=== PATIENT | female | born 1945 | race Caucasian/White ===

== ENCOUNTER → 2018-08-31 13:37 | Outpatient (CLI) | payer MEDICARE, SELFPAY ==
--- NOTE | 2018-08-31 13:41 | MM_ITS ---
MM Dig SC mamm unilat RT CAD Cassie technique utilized Ordering Physician: Rick Carney MD Patient Age: 73 years Female COMPARISON: We finally obtained studies from [facility] dated August 2017 & July 2016 INDICATION: Previous left mastectomy 32 years ago subsequent breast reconstruction. But Implant removed on left. Mammograms only performed on the right breast. TECHNIQUE: Cassie technique utilized on on right breast only. .. CC & MLO images were obtained of the breast tissue overlying implant, as well as a second set of images including the breast implant. Mammography is inherently limited due to the implants is a could obscure areas of breast R2 CAD reviewed. . FINDINGS: The Yi views of the right breast show no significant new findings. No dominant mass nor suspicious calcifications right breast. Breast tissue overlying the implant appears stable. Considering slight differences technique. I see no new interval areas of significant concern.... The right subglandular implant appears stable with slight undulating contour again noted but unchanged.. . IMPRESSION: Stable right mammogram. No areas of concern Stable right breast implant. BI-RADS Category: 2 Benign Finding(s) RECOMMENDED FOLLOW-UP: 1YR 1 YEAR FOLLOW-UP A letter has been sent to the patient regarding results of the study.)
== END ==
PROVIDERS: PCP Family Medicine; Visit Provider Family Medicine
DX: Z12.31 Encounter for screening mammogram for malignant neoplasm of breast (principal)
CPT/HCPCS: 77067

== ENCOUNTER → 2019-12-27 13:12 | Outpatient (CLI) | payer MEDICARE, SELFPAY ==
--- NOTE | 2019-12-27 13:18 | XR_ITS ---
PROCEDURE: XR CHEST 2V CLINICAL HISTORY: SOB, CONGESTION COMPARISON: No exams were available for comparison FINDINGS: The cardiomediastinal silhouette and pulmonary vascularity are within normal limits. There are partially calcified bilateral breast implants. No lobar consolidation or collapse. No acute bony abnormalities. IMPRESSION: No acute findings. Dictated by: Migel Franco MD 12/27/2019 17:40 Electronically signed by Migel Franco MD in [place] 12/27/2019 17:40
== END ==
PROVIDERS: PCP Family Medicine; Visit Provider Family Medicine
DX: R06.02 Shortness of breath (principal); J98.8 Other specified respiratory disorders
CPT/HCPCS: 71046

== ENCOUNTER → 2020-05-31 15:59 | Outpatient (CLI) | payer MEDICARE, SELFPAY ==
--- NOTE | 2020-05-31 | CA_ITS ---
APPROVED REPORT Bilateral Lower Extremity Venous Study for Security Engineer: CT Indications Lower Extremity Pain: Right Vein Imaging CFV (R): compressive, spontaneous, phasic, augmentation SFJ (R): compressive, spontaneous, phasic, augmentation FEM (R): compressive, spontaneous, phasic, augmentation POP (R): compressive, spontaneous, phasic, augmentation DFV (R): compressive, spontaneous, phasic, augmentation PTV (R): compressive, spontaneous, phasic, augmentation GSV (R): compressive, spontaneous, phasic, augmentation SSV (R): compressive, spontaneous, phasic, augmentation Peroneals (R):compressive, spontaneous, phasic, augmentation GAS (R): compressive, spontaneous, phasic, augmentation Findings RLE negative for DVT/SVT vessels fully compressible no reflux noted Conclusion RLE negative for DVT/SVT vessels fully compressible no reflux noted Electronically signed by : Migel Franco MD 06/03/2020 16:07:21
== END ==
PROVIDERS: PCP Family Medicine; Visit Provider Family Medicine
DX: S86.811A Strain of other muscle(s) and tendon(s) at lower leg level, right leg, initial encounter (principal); M79.662 Pain in left lower leg
CPT/HCPCS: 93971

== ENCOUNTER → 2020-06-28 12:29 | Outpatient (CLI) | payer MEDICARE, SELFPAY ==
--- NOTE | 2020-06-28 12:36 | XR_ITS ---
PROCEDURE: XR KNEE RT 3V CLINICAL INDICATION: RT KNEE PAIN COMPARISON: No exams were available for comparison FINDINGS: There is minor joint space narrowing medially. There is spurring of the tibial spines. There is narrowing of the patellofemoral compartment. There appears to be a small effusion in the suprapatellar bursa. There is mild arthrosclerotic calcification of the popliteal artery. There is no fracture or loose body. IMPRESSION: Mild degenerate changes along with effusion suprapatellar bursa Dictated by: Dr. Bret Lew MD 06/28/2020 13:03 Dr. Bret Lew MD in [place] 06/28/2020 13:03
== END ==
PROVIDERS: PCP Family Medicine; Visit Provider Family Medicine
DX: M25.561 Pain in right knee (principal)
CPT/HCPCS: 73562

== ENCOUNTER → 2021-02-14 12:37 | Outpatient (CLI) | payer MEDICARE, SELFPAY ==
--- NOTE | 2021-02-14 | CA_ITS ---
APPROVED REPORT EXAM: Comprehensive 2D, Doppler, and color-flow Echocardiogram Zone Supervisor Firearms: Keiko Kaiser CRT Ht: 5 ft 7 in Wt: 136lbs BSA: 1.72 BP: 110/70 mmHg Indications: Murmur, Hypertension/HDD, breast implants 2D Dimensions LVOT 1.82 cm (M/F) 1.5-2.5 LA Volume 63.80 mL LA Volume Index 37.10 mL/m2 (M/F) 16-34 M-Mode Dimensions RVDd 2.06 cm (0.9-2.6) LA Diam 3.32 cm (1.9-4.0) LVDd 4.67 cm (3.5-5.7) Ao Diam 3.00 cm (2.0-3.7) LVDs 3.22 cm (3.5-5.7) IVSd 1.22 cm (0.6-1.1) PWd 0.67 cm (0.6-1.1) EF (Teich) 58.70% FS 31.00% EDV (Teich) 100.80 mL TAPSE 1.61 (<1.7) ESV (Teich) 41.60 mL LV Diastology E Decel Time 227.00 (160-240 msec) E/A Ratio 0.93 MED E' 4.10 (< 7 cm/sec) MED A' 10.90 cm/s E'/MED E' Ratio 20.39 (>14) LAT E' 5.70 (<10 cm/sec) LAT A' 9.70 cm/s E/LAT E' Ratio 14.67 (>14) Aortic Valve LVOT Max 152.00 (70-110 cm/s) LVOT VTI 36.97 cm AoV Peak Panchito. 194.00 (50-130 cm/s) AO Peak GR. 15.00 mmHg AO Mean GR. 7.90 (<5 mmHg) AO VTI 46.79 (18-25 cm) HAN (VTI) 2.06 (2.5-4.5 cm2) Mitral Valve MV A Velocity 90.00 (40-130 cm/s) E/A Ratio 0.93 MV Decel. Time 227.00 (160-240 ms) Pulmonary Valve PV Peak Velocity 105.00 (50-150 cm/s) Tricuspid Valve TR P. Velocity 226.00 cm/s RAP Estimate 10.00 mmHg RVSP 30.40 mmHg Left Ventricle Left atrium is mildly enlarged, left ventricle is normal size, mild concentric left ventricular hypertrophy, visually estimated ejection fraction 55% with no regional wall motion abnormality, grade 1 diastolic dysfunction seen with tissue Doppler evidence of raise left atrial pressure. Right Ventricle Right atrium and right ventricle are normal size and contractility. Aortic Valve Aortic valve is thickened and calcified without Doppler evidence of aortic stenosis or aortic insufficiency. Mitral Valve Mitral valve grossly normal, there is trace mitral regurgitation. Tricuspid Valve Tricuspid grossly normal, there is trace tricuspid regurgitation, tricuspid regurgitation jet velocity is inadequate for calculation of the right ventricular systolic pressure. Pulmonic Valve Pulmonic valve is poorly visualized. Great Vessels Aortic root is normal size. Pericardium No significant pericardial effusion noted. Conclusion 1. Mildly enlarged left atrium, normal left ventricular size, mild concentric left ventricular hypertrophy, visually estimated ejection fraction 55% with no regional wall motion abnormality, grade 1 diastolic dysfunction seen with tissue Doppler evidence of raise left atrial pressure. 2. Trace mitral and tricuspid regurgitation. 3. Thickened and calcified aortic valve without Doppler evidence of aortic stenosis or aortic insufficiency. 4. No significant pericardial effusion noted, inferior vena cava is normal size with normal inspiratory collapse. Electronically signed by : Yony Carroll, 02/17/2021 09:31:40
--- NOTE | 2021-02-14 12:40 | MM_ITS ---
PROCEDURE INFORMATION: Exam: MG Screening 3D Mammography Exam date and time: 02/14/2021 12:40 PM Age: 75 years old Clinical indication: Screening exam; Personal history of breast cancer TECHNIQUE: Imaging protocol: Screening tomosynthesis and 2D mammography including computer-aided detection (CAD) when performed. COMPARISON: 1. MG SCUNIRT MM Dig SC mamm unilat RT CAD 08/31/2018 2:11 PM 2. MG MM MAMMO DIGITAL SCREENING AUG W CAD RT 09/01/2017 3:03 PM FINDINGS: MAMMOGRAPHY: Breast composition: The breast tissue is composed of scattered areas of fibroglandular density. Mass: None. Architectural distortion: None. Calcifications: Widespread capsular implant calcifications are noted. Asymmetric density: None. Skin thickening: None. Axillary adenopathy: None. Implants: Prepectoral silicone breast implants are present. The patient is status post left mastectomy IMPRESSION: No mammographic evidence of malignancy. Annual screening is recommended unless otherwise clinically indicated. ASSESSMENT: BI-RADS Category 2: Benign
== END ==
PROVIDERS: PCP Family Medicine; Visit Provider Nurse Practitioner
DX: Z12.31 Encounter for screening mammogram for malignant neoplasm of breast (principal); R01.1 Cardiac murmur, unspecified
CPT/HCPCS: 77063; 77067; 93306

== ENCOUNTER → 2021-02-21 09:49 | Outpatient (CLI) | payer MEDICARE, SELFPAY ==
--- NOTE | 2021-02-21 09:51 | XR_ITS ---
PROCEDURE: XR DEXA AXIAL SKELETON CLINICAL HISTORY: POSTMENOPAUSAL COMPARISON: No exams were available for comparison FINDINGS: The right hip BMD is 0.687 with a T-score of -2.1. The left hip BMD is 0.554 with a T-score of -2.7. The lumbar spine BMD is 1.0 with a T-score of -0.4. IMPRESSION: This patient is considered osteoporotic according to the World Health Organization criteria. Fracture risk is high. Treatment is advised. Based on these results a follow-up exam is recommended in 1 year. Dictated by: Migel Franco MD 02/22/2021 08:05 Migel Franco MD in [place] 02/22/2021 08:05
== END ==
PROVIDERS: PCP Family Medicine; Visit Provider Nurse Practitioner
DX: Z78.0 Asymptomatic menopausal state (principal)
CPT/HCPCS: 77080

== ENCOUNTER → 2022-01-08 07:23 | Outpatient (CLI) | payer MEDICARE, SELFPAY ==
--- NOTE | 2022-01-08 07:27 | CA_ITS ---
APPROVED REPORT EXAM: Comprehensive 2D, Doppler, and color-flow Echocardiogram Special Events Director: Jeniffer Weber, RCS, RVS Ht: 5 ft 7 in Wt: 140lbs BSA: 1.74 BP: 110/70 mmHg Indications: Murmur, Tachycardia, Hx-Breast CA with radiation TX, Family Hx HD, HTN 2D Dimensions IVSd 1.15 cm LA Volume 48.30 mL PWd 1.04 cm LA Volume Index 27.80 mL/m2 (M/F) 16-34 LVDd 3.97 cm Aortic Root 2.51 cm Left Atrium 3.41 cm LVOT 1.83 cm (M/F) 1.5-2.5 M-Mode Dimensions RVDd 2.04 cm (0.9-2.6) LA Diam 3.68 cm (1.9-4.0) LVDd 4.64 cm (3.5-5.7) Ao Diam 2.66 cm (2.0-3.7) LVDs 3.22 cm (3.5-5.7) IVSd 1.25 cm (0.6-1.1) PWd 1.28 cm (0.6-1.1) EF (Teich) 58.10% EPSs 0.81 cm FS 30.60% EDV (Teich) 99.30 mL TAPSE 2.56 (<1.7) ESV (Teich) 41.60 mL LV Diastology E Decel Time 127.00 (160-240 msec) E/A Ratio 0.88 MED E' 4.40 (< 7 cm/sec) MED A' 9.70 cm/s E'/MED E' Ratio 20.34 (>14) LAT E' 7.80 (<10 cm/sec) LAT A' 10.00 cm/s E/LAT E' Ratio 11.47 (>14) Aortic Valve LVOT Max 86.00 (70-110 cm/s) LVOT VTI 21.80 cm AoV Peak Panchito. 190.00 (50-130 cm/s) AO Peak GR. 14.50 mmHg AO Mean GR. 7.80 (<5 mmHg) AO VTI 45.98 (18-25 cm) HAN (VTI) 1.25 (2.5-4.5 cm2) Mitral Valve MV A Velocity 102.00 (40-130 cm/s) E/A Ratio 0.88 MV Decel. Time 127.00 (160-240 ms) MV Mean Gr. 2.30 (<2mmHg) MV PHT 60.00 ms Pulmonary Valve PV Peak Velocity 89.00 (50-150 cm/s) [place] End VMAX 194.00 cm/s Tricuspid Valve TR P. Velocity 207.00 cm/s RAP Estimate 10.00 mmHg RVSP 27.10 mmHg Left Ventricle Left atrium is mildly enlarged, left ventricle is normal size, mild concentric left ventricular hypertrophy, visually estimated ejection fraction 55% with no regional wall motion abnormality, grade 1 diastolic dysfunction seen with tissue Doppler evidence of raise left atrial pressure. Right Ventricle Right atrium and right ventricle are normal size and contractility. Aortic Valve Aortic valve is minimally thickened and fibrosed there is no aortic stenosis or aortic insufficiency. Mitral Valve Mitral valve is grossly normal, there is trace mitral regurgitation. Tricuspid Valve Tricuspid grossly normal, there is trace tricuspid regurgitation, tricuspid rotation jet velocity is inadequate for calculation of the right ventricular systolic pressure. Pulmonic Valve Pulmonic valve is poorly visualized Great Vessels Aortic root is normal size. Inferior vena cava normal size with normal inspiratory collapse. Pericardium No significant pericardial effusion noted. Conclusion 1. Mildly enlarged left atrium, normal left ventricular size, mild concentric left ventricular hypertrophy, visually estimated ejection fraction 55% with no regional wall motion abnormality, grade 1 diastolic dysfunction seen with tissue Doppler evidence of raise left atrial pressure. 2. Trace mitral and tricuspid regurgitation. 3. No significant pericardial effusion. 4. Inferior vena cava normal size with normal inspiratory collapse. Electronically signed by : Yony Carroll MD 01/09/2022 13:13:37
== END ==
PROVIDERS: PCP Family Medicine; Visit Provider Family Medicine
DX: R00.0 Tachycardia, unspecified (principal); R01.1 Cardiac murmur, unspecified
CPT/HCPCS: 93306

== ENCOUNTER → 2022-04-01 12:07 | Outpatient (CLI) | payer MEDICARE, SELFPAY ==
--- NOTE | 2022-04-01 12:13 | XR_ITS ---
FINAL REPORT CLINICAL HISTORY: PNEUMONIA OF BOTH LOWER LOBES UE TO INFECTIOS ORGANISM, COUGH COMPARISON: December 27, 2019 FINDINGS: Two views of the chest were obtained. The heart size and pulmonary vascularity are within normal limits. The mediastinum is normal. No acute pulmonary abnormality is identified. There is no pneumothorax. The bony thorax is intact. There is postoperative change of the anterior chest. IMPRESSION: Postoperative change with no active cardiopulmonary disease. Reviewed, Interpreted and Dictated by Trace Ferrer III, MD Transcribed by Inés Watson Authenticated and [facility]
== END ==
PROVIDERS: PCP Family Medicine; Visit Provider Nurse Practitioner
DX: J18.9 Pneumonia, unspecified organism (principal)
CPT/HCPCS: 71046

== ENCOUNTER → 2022-04-15 08:54 | Outpatient (CLI) | payer MEDICARE, SELFPAY ==
--- NOTE | 2022-04-15 09:10 | MM_ITS ---
PROCEDURE INFORMATION: Exam: MG Right Screening 3D Mammography Exam date and time: 04/15/2022 9:29 AM Age: 76 years old Clinical indication: Screening examination. personal history of breast cancer TECHNIQUE: Imaging protocol: Right Screening tomosynthesis and 2D mammography including computer-aided detection (CAD) when performed. COMPARISON: 1. MG MM DIG SCREENING MAMM BI W/CAD 02/14/2021 1:11 PM 2. MG SCUNIRT MM Dig SC mamm unilat RT CAD 08/31/2018 2:11 PM FINDINGS: MAMMOGRAPHY: Breast composition: There are scattered areas of fibroglandular density. Mass: None. Architectural distortion: None. Calcifications: Extensive capsular calcifications are present. Asymmetric density: None. Skin thickening: None. Axillary adenopathy: None. Implants: Prepectoral silicone breast implant is present. Other findings: The patient is status post left mastectomy IMPRESSION: No mammographic evidence of malignancy. Annual screening is recommended unless otherwise clinically indicated. ASSESSMENT: BI-RADS Category 2: Benign
--- NOTE | 2022-04-15 09:11 | XR_ITS ---
FINAL REPORT TECHNIQUE: Bone densitometry calculations of the lumbar spine and left hip were obtained. CLINICAL HISTORY: post menopausal FINDINGS: DEXA BONE DENSITY AXIAL SKELETON Using L1-4, the bone mineral density of the spine is 1.064 g/cm2, corresponding to T-score of 0.2. This is classified as normal bone mineralization. Using the left hip, the bone mineral density of the femoral neck is 0.630 g/cm2, corresponding to a T-score of -2.6. This is classified as osteoporosis. NOTE: T-score: Standard deviation compared with peak bone mass of young adult mean. *Following the recommendations of the International Society of Bone Densitometry, classification of hip BMD is based on the lower of two T-scores; total hip or femoral neck. IMPRESSION: Osteoporosis: Lowest T-score is at or below -2.5. This patient's T-score meets the World Health Organization criteria for osteoporosis. Reviewed, Interpreted and Dictated by Trace Ferrer III, MD Transcribed by Courtney Sam Authenticated and [facility]
== END ==
PROVIDERS: PCP Family Medicine; Visit Provider Nurse Practitioner
DX: Z12.31 Encounter for screening mammogram for malignant neoplasm of breast (principal); Z78.0 Asymptomatic menopausal state; M81.0 Age-related osteoporosis without current pathological fracture
CPT/HCPCS: 77063; 77067; 77080

== ENCOUNTER 2022-09-09 08:38 | Day surgery (SDC) | payer MEDICARE, SELFPAY ==
[2022-08-19 11:42] VITALS: BMI 21.2
[2022-09-09 08:57] VITALS: BP 147/58; PULSE 89; RESP 18; TEMP 36.2; O2SAT 99
[2022-09-09 09:21] VITALS: O2SAT 99
--- NOTE | 2022-09-09 09:23 | EXP.ANES.CKL ---
[facility] Medical History (Updated 09/09/22 @ 09:06 by Maria Fernanda Aden RN) Acquired hypothyroidism Breast cancer Fever blister History of pneumonia Hypertension Neoplasm of skin of upper arm Pulmonary interstitial fibrosis Surgical History (Updated 09/09/22 @ 09:06 by Maria Fernanda Aden RN) History of mastectomy History of surgery Family History Other Cancer Coronary artery disease Hypertension Social History (Updated 09/09/22 @ 09:04 by Maria Fernanda Aden RN) Smoking Status: Never smoker alcohol intake: never substance use type: denies use current occupational status: employed Travel in the last 8 weeks: None household members: spouse housing: house lives independently: Yes education level: high school caffeine: Yes special kristin needs: No agree to transfusion: No do you feel safe at home: Yes victim of physical abuse: No victim of emotional abuse: No victim of sexual abuse: No would you like helpful sources: No [facility] Anesthesia Checklist Patient Identification Patient Identification: Verbal (Name & ) Structural Data Admitted From: Home Planned Operative Procedure/s: egd,colonoscopy Consent for Planned Operative Procedure(s) Verified: Yes Airway Assessment C-Spine Mobility Assessed: Yes TMJ Mobility Assessed: Yes Dentition: Good Dentition Neurological Assessment Level of Consciousness: Awake, Alert and Appropriate Anesthesia Plan Anesthesia Risk discussed: Yes Anesthesia Plan: Verified ASA Class: II Anesthesia Type: MAC
--- NOTE | 2022-09-09 09:57 | P.PCN_ITS ---
Procedure: Date: 09/09/22 Patient Date of :: 1945 Procedure Performed:: Colonoscopy Indications:: The patient s a 77 year old who presents for surveillance colonoscopy for a history of colon polyps in the psat Performing Provider:: Cory Yuan MD Referring Provider:: Jose Harris MD Sedation:: See RN records Procedure:: After placing the patient in the left lateral decubitus position, the colonoscop y was gently inserted into the rectum and under direct visualization advanced to the cecum which was identified by transillumination in the right lower quadrant, identification of the ileocecal valve, appendiceal orifice, and cecal strap. Color, texture, mucosa, and anatomy of the colon were carefully examined with the scope. Findings:: Anal canal: normal Rectum: internal hemorrhoids Sigmoid colon: diverticulosis. Sessile polyp less than 10 mm in size. Removed with cold snare polypectomy Descending colon: normal without polyps or inflammatory changes Splenic flexure: normal Transverse colon: normal without polyps or inflammatory changes Hepatic flexure: Sessile polyp less than 10 mm in size. Removed with cold snare polypectomy Ascending colon: Ulcerated, neoplastic appearing mass lesion of the proximal ascending colon, occupies approximately 40-50% of circumference of lumen. Biopsies obtained. Endoscopic marker injected adjacent to this lesion Cecum: Sessile polyp less than 10 mm in size. Removed with cold snare polypectomy Terminal ileum: not visualized Impression: Neoplastic apparing mass lesion of the ascending colon Polyps of the cecum, hepatic flexure, and sigmoid colon Diverticulosis Melanosis coli Recommendations:: Await pathology results Refer for surgical and oncology consultations Repeat colonoscopy within 6-12 months after surgery Complications:: None Estimated blood obtained (mL): 0
[2022-09-09 10:00] VITALS: BP 96/44; PULSE 68; RESP 16; TEMP 36.4; O2SAT 95
--- NOTE | 2022-09-09 10:03 | HMH.SCOPE ---
Procedure: Date: 09/09/22 Patient Date of :: 1945 Procedure Performed:: EGD Indications:: Chronic intermittent dysphagia. The patient reports having had EGD with esophageal dilatation in the past Performing Provider:: Cory Yuan MD Referring Provider:: Jose Harris MD Sedation:: See RN notes Procedure:: The gastroscope was gently passed through the incisoral orifice into the oral cavity and under direct visualization the esophagus was intubated. The endoscope was passed down the esophagus, through the stomach, and into the duodenum. Color, texture, mucosa, and anatomy of the esophagus, stomach, and duodenum were carefully examined with the scope. Findings:: Oropharynx: normal Esophagus: normal. Biopsies obtained. Empiric dilatation performed with 54F bougie dilation EG Junction: intact at 40 cm Cardia: normal Fundus: normal Body: gastritis. biopsies obtained Antrum: gastritis.linear erythema.biopsies obtained Duodenal bulb: normal Duodenum (second and third portion): normal Recommendations:: Await pathology results Return for EGD with esophageal dilatation as needed Complications:: None Estimated blood obtained (mL): 0
[2022-09-09 10:10] VITALS: BP 123/55; PULSE 71; RESP 16; O2SAT 97
[2022-09-09 10:20] VITALS: BP 147/59; PULSE 75; RESP 17; O2SAT 100
[2022-09-09 10:30] VITALS: BP 149/86; PULSE 75; RESP 18; O2SAT 100
== END 2022-09-09 10:35 | disposition home or self-care (01) ==
PROVIDERS: PCP Family Medicine; Visit Provider Internal Medicine
PROC: 0DJ08ZZ Inspection of Upper Intestinal Tract, Via Natural or Artificial Opening Endoscopic (ICD-10-PCS; CPT 43235; principal; 2022-09-09 09:30)
DX: R13.10 Dysphagia, unspecified (principal); Z12.11 Encounter for screening for malignant neoplasm of colon; Z86.010 Personal history of colon polyps; D12.0 Benign neoplasm of cecum; D12.5 Benign neoplasm of sigmoid colon; Z79.899 Other long term (current) drug therapy
CPT/HCPCS: 43239; 43248; 45385

== ENCOUNTER → 2022-09-11 11:00 | Outpatient (CLI) | payer MEDICARE, SELFPAY ==
[2022-09-11 11:40] LABS: Basophils % 0.4 % (0.1-2.0); Eosinophils % 0.3 % (0.1-12.0); Hematocrit 26.5 % (37.0-47.0); Hemoglobin 7.9 g/dL (12.2-16.2); Lymphocytes # 0.6 K/mm3 (0.7-4.5); Lymphocytes % 5.4 % (10-50); Mean Corpuscular HGB Conc 29.7 g/dL (31.8-35.4); Mean Corpuscular Hemoglobin 21.7 pg (27.0-31.2); Mean Corpuscular Volume 73.3 fl (81-99); Mean Platelet Volume 9.8 fl (7.4-10.4); Monocytes # 0.4 K/mm3 (0.1-1.0); Neutrophils # 9.8 K/mm3 (1.8-7.8); Neutrophils % 89.9 % (37.0-80.0); Platelet Count 345 K/mm3 (142-424); Red Blood Count 3.62 M/mm3 (4.20-5.40); Red Cell Distribution Width 17.1 % (11.5-17.5); White Blood Count 10.9 K/mm3 (4.8-10.8)
[2022-09-11 12:07] LABS: MANUAL DIFFERENTIAL MANUAL DIFFERENTIAL (MANUAL DIFF)
[2022-09-11 12:20] LABS: Alanine Aminotransferase 43 U/L (12-78); Albumin Level 3.8 g/dl (3.5-5.0); Albumin/Globulin Ratio 1.7 (1.1-1.8); Alkaline Phosphatase 117 U/L (38-126); Anion Gap 14.7 mEq/L (5-15); Aspartate Amino Transferase 62 U/L (14-36); Bilirubin,Total 0.2 mg/dl (0.2-1.3); Blood Urea Nitrogen 18 mg/dl (7-17); Calcium 9.4 mg/dl (8.4-10.2); Carbon Dioxide 25 mmol/L (22.0-30.0); Chloride 103 mmol/L (98-107); Estimated Glomerular Filt Rate 69 ml/min (>60); GFR (African American) 84 ML/MIN (>60); Globulin 2.2 g/dL (1.3-3.2); Glucose 109 mg/dl (74-100); Potassium 3.7 mmoL/L (3.5-5.1); Sodium 139 mmol/L (136-145)
[2022-09-11 14:50] LABS: Anisocytosis 2+; Hypochromasia 1+; Lymphocytes % 12 % (10-50); Monocytes % 3 % (2-9); Neutrophils % 85 % (42-76); Platelet Estimate Normal; Total Cells Counted 100
[2022-09-12 08:14] LABS: CEA 2.9 ng/mL (0.0-4.7)
== END ==
PROVIDERS: PCP Family Medicine; Visit Provider Surgery
DX: K63.89 Other specified diseases of intestine (principal); R97.0 Elevated carcinoembryonic antigen [CEA]; J84.10 Pulmonary fibrosis, unspecified
CPT/HCPCS: 36415; 80053; 82378; 85007; 85025; 86850

== ENCOUNTER 2022-09-12 16:43 | Inpatient (IN) | payer MEDICARE, SELFPAY ==
[2022-09-12] VITALS (26 sets, daily range): BP systolic 84–132; BP diastolic 37–90; PULSE 91–119; RESP 18–20; TEMP 35.8–36.9; O2SAT 90–100; BMI 20.3; BMI 22.2
--- NOTE | 2022-09-12 16:42 | ECG_ITS ---
APPROVED REPORT Exam: Resting ECG HR:114 bpm ECG Measurements Heart Rate 114 AXES TX 146 P 71 QRSd 106 QRS 22 QT 323 T 30 QTc 391 Conclusion SINUS TACHYCARDIA WITH FREQUENT VENTRICULAR PREMATURE COMPLEXES ST DEVIATION AND MODERATE T-WAVE ABNORMALITY, CONSIDER LATERAL ISCHEMIA [-0.1+ mV T-WAVE IN I/aVL/V5/V6] ABNORMAL ECG UNCONFIRMED REPORT Electronically signed by : Pantera Blue MD 09/17/2022 20:20:25
--- NOTE | 2022-09-12 17:00 | XR_ITS ---
PROCEDURE INFORMATION: Exam: XR Chest Exam date and time: 09/12/2022 5:27 PM Age: 77 years old Clinical indication: Shortness of breath; Other: Chest pain TECHNIQUE: Imaging protocol: Radiologic exam of the chest. Views: 1 view. COMPARISON: CR XR CHEST 2V 04/01/2022 12:46 PM FINDINGS: Lungs: Unremarkable. No consolidation. Pleural spaces: Unremarkable. No pleural effusion. No pneumothorax. Heart/Mediastinum: Mild CHF new from comparison. Mild cardiomegaly. Bones/joints: Unremarkable. Soft tissues: Calcified breast implants bilaterally. IMPRESSION: 1. Calcified breast implants bilaterally. 2. Mild CHF new from comparison.
--- NOTE | 2022-09-12 17:09 | PC.NURSE ---
called lab and spoke with toñito about coming to collect labs on pt.
--- NOTE | 2022-09-12 17:11 | HMH.EDGENADL ---
Discharge Plan Disposition Patient Disposition: Admitted As Inpatient Chief Complaint: Chest Pain Clinical Impressions Clinical Impression: Respiratory failure, Heart failure, Non-ST elevation (NSTEMI) myocardial infarction, LBBB (left bundle branch block) Discharge ED Provider: Suresh Matthew General Adult HPI General Chief complaint: Chest Pain Stated complaint: chest pain Time Seen by Provider: 09/12/22 17:00 History of Present Illness HPI narrative: Patient is a 77-year-old female past medical history of hypertension who presents to the emergency department for evaluation of chest pain. Onset was acute, just prior to arrival. Patient was recently diagnosed with a upper respiratory illness. Pain is substernal, moderate to severe in intensity. In the field EMS was communicated to me that was concerning for STEMI however after discussing with cardiology it is a left bundle branch block that does not meet Sgarbossa criteria. Patient was given aspirin and sublingual nitroglycerin prior to arrival. Upon arrival patient has had large resolution of her pain and presents here for continued evaluation. No other additional complaints at this time. Related Data Home Medications Medication Instructions Recorded Confirmed alendronate 70 mg tablet 70 mg PO WEEKLY . 05/22/22 09/11/22 aspirin 81 mg tablet,delayed 81 mg PO DAILY HEART HEALTHY 05/22/22 09/11/22 release (Adult Low Dose Aspirin) amlodipine 2.5 mg tablet 2.5 mg PO DAILY BP 09/09/22 09/11/22 omeprazole 40 mg capsule,delayed 40 mg PO DAILY Reflux/Acid reflux 09/09/22 09/11/22 release thyroid (pork) 60 mg tablet 60 mg PO DAILY . 09/09/22 09/11/22 (Valentines Thyroid) Previous Rx's Medication Instructions Recorded albuterol sulfate 90 mcg/actuation 2 inh inhalation QID PRN shortness 08/27/22 aerosol inhaler of breath or wheezing #8.5 grams doxycycline hyclate 100 mg tablet 100 mg PO BID #20 tabs 09/11/22 fluticasone furoate 100 1 inh inhalation DAILY #30 ea 09/11/22 mcg-vilanterol 25 mcg/dose inhalation powder (Breo Ellipta) hydroxyzine HCl 25 mg tablet 25 mg PO BID PRN anxiety #20 tabs 09/11/22 prednisone 20 mg tablet 20 mg PO BID #10 tabs 09/11/22 Allergies Allergy/AdvReac Type Severity Reaction Status Date / Time Sulfa (Sulfonamide AdvReac Difficulty Verified 09/11/22 13:50 Antibiotics) Swallowing PFSH PFSH Medical History Acquired hypothyroidism Breast cancer Fever blister History of pneumonia Hypertension Neoplasm of skin of upper arm Pulmonary interstitial fibrosis Surgical History History of colonoscopy History of mastectomy History of surgery BREAST IMPLANTS Family History Other Cancer Coronary artery disease Hypertension Social History Smoking Status: Never smoker alcohol intake: never substance use type: denies use current occupational status: employed Travel in the last 8 weeks: None household members: spouse housing: house lives independently: Yes education level: high school caffeine: Yes special kristin needs: No agree to transfusion: No do you feel safe at home: Yes victim of physical abuse: No victim of emotional abuse: No victim of sexual abuse: No would you like helpful sources: No ROS Obtained: Yes Systems reviewed as appropriate & no additional complaints except as documented Physical Exam General General appearance: alert and in no apparent distress Head Head exam: atraumatic and normocephalic Eye Eye exam: Present PERRL and EOMI ENT ENT exam: Present mucous membranes moist Neck Neck exam: Present normal inspection Chest Chest inspection: Present normal inspection and symmetric chest wall rise Respiratory Respiratory exam: Present normal lung sounds
--- NOTE | 2022-09-12 17:14 | PC.NURSE ---
lab at bedside collecting blood
[2022-09-12 17:32] LABS: Basophils % 0.1 % (0.1-2.0); Hematocrit 27.5 % (37.0-47.0); Hemoglobin 8.4 g/dL (12.2-16.2); Lymphocytes # 0.5 K/mm3 (0.7-4.5); Mean Corpuscular HGB Conc 30.5 g/dL (31.8-35.4); Mean Corpuscular Volume 72.2 fl (81-99); Monocytes # 0.4 K/mm3 (0.1-1.0); Monocytes % 3.2 % (1.7-9.3); Neutrophils # 11.7 K/mm3 (1.8-7.8); Neutrophils % 92.6 % (37.0-80.0); Platelet Count 474 K/mm3 (142-424); Red Blood Count 3.81 M/mm3 (4.20-5.40); Red Cell Distribution Width 17.3 % (11.5-17.5); White Blood Count 12.7 K/mm3 (4.8-10.8)
[2022-09-12 17:37] LABS: MANUAL DIFFERENTIAL MANUAL DIFFERENTIAL (MANUAL DIFF)
[2022-09-12 17:40] LABS: Anion Gap 22.1 mEq/L (5-15); Blood Urea Nitrogen 25 mg/dl (7-17); Calcium 9.9 mg/dl (8.4-10.2); Carbon Dioxide 20 mmol/L (22.0-30.0); Chloride 103 mmol/L (98-107); Creatinine Clearance Estimated 42 mL/min (50-200); Estimated Glomerular Filt Rate 69 ml/min (>60); GFR (African American) 84 ML/MIN (>60); Glucose 168 mg/dl (74-100); Potassium 4.1 mmoL/L (3.5-5.1); Sodium 141 mmol/L (136-145)
[2022-09-12 17:44] LABS: D-Dimer 0.99 ug/mL (0.0-0.5)
--- NOTE | 2022-09-12 17:53 | CT_ITS ---
PROCEDURE INFORMATION: Exam: CTA Chest With Contrast Exam date and time: 09/12/2022 6:21 PM Age: 77 years old Clinical indication: Other: Chest pain; Additional info: Chest pain, positive dimer TECHNIQUE: Imaging protocol: Computed tomographic angiography of the chest with contrast. 3D rendering (Not supervised by radiologist): MIP and/or 3D reconstructed images were created by the technologist. Radiation optimization: All CT scans at this facility use at least one of these dose optimization techniques: automated exposure control; mA and/or kV adjustment per patient size (includes targeted exams where dose is matched to clinical indication); or iterative reconstruction. Contrast material: ISOVUE; Contrast volume: 70 ml; Contrast route: INTRAVENOUS (IV); COMPARISON: CR XR CHEST PORTABLE 09/12/2022 5:27 PM FINDINGS: Pulmonary arteries: No CT evidence of pulmonary embolus. Aorta: Unremarkable. No aortic aneurysm. No aortic dissection. Lungs: Compressive atelectasis left lower lobe. Pleural spaces: Unremarkable. No pneumothorax. No pleural effusion. Heart: Congestive heart failure. Mild cardiomegaly. No pericardial effusion. Lymph nodes: Unremarkable. No enlarged lymph nodes. Bones/joints: Unremarkable. No acute fracture. Soft tissues: Calcified bilateral breast implants. IMPRESSION: 1. Congestive heart failure. 2. Compressive atelectasis left lower lobe. 3. No CT evidence of pulmonary embolus. 4. Calcified bilateral breast implants.
--- NOTE | 2022-09-12 18:09 | PC.NURSE ---
pt to rad.
[2022-09-12 18:11] LABS: Troponin I 0.56 ng/ml (0.00-0.034)
--- NOTE | 2022-09-12 18:11 | PC.NURSE ---
Critical lab value called to [facility] Dr paged.
--- NOTE | 2022-09-12 18:12 | PC.NURSE ---
AHSAN speaking with Dr Winkler
--- NOTE | 2022-09-12 18:13 | PC.NURSE ---
audio director called and stated that pt's IV is possibly bad, requesting someone to come look at it
--- NOTE | 2022-09-12 18:33 | PC.NURSE ---
MD and nurse at bedside
[2022-09-12 18:35] LABS: Lymphocytes % 4 % (10-50); Monocytes % 1 % (2-9); Neutrophils % 90 % (42-76); Platelet Estimate Slight Increase; Poikilocytosis 3+; Total Cells Counted 100
[2022-09-12 18:37] LABS: Hypochromasia 2+; Microcytosis 2+; Target Cells 1+; Tear Drop Cells 1+
--- NOTE | 2022-09-12 18:45 | PC.NURSE ---
Entered room to assess pt. found pt to be unresponsive. Md to the bedside to assess. holly paged for phone consult per md request.
--- NOTE | 2022-09-12 18:48 | ECG_ITS ---
APPROVED REPORT Exam: Resting ECG HR:110 bpm ECG Measurements Heart Rate 110 AXES HI 146 P 58 QRSd 105 QRS 25 QT 316 T 198 QTc 381 Conclusion SINUS TACHYCARDIA POSSIBLE LEFT ATRIAL ENLARGEMENT [-0.1mV P-WAVE IN V1/V2] ST DEVIATION AND MODERATE T-WAVE ABNORMALITY, CONSIDER LATERAL ISCHEMIA [-0.1+ mV T-WAVE IN I/aVL/V5/V6] ABNORMAL ECG UNCONFIRMED REPORT Electronically signed by : Pantera Blue MD 09/14/2022 19:46:36
[2022-09-12 18:51] LABS: PTT Heparin (inpatient only) 19.1 Seconds (23.6-34.0)
[2022-09-12 19:01] LABS: NT Pro Brain Natriuretic Pep. 3720 pg/mL (0-450)
[2022-09-12 19:15] LABS: Coronavirus 19, PCR Not Detected (NotDetected); Influenza A, PCR Not Detected (NotDetected); Influenza B, PCR Not Detected (NotDetected)
[2022-09-12 19:25] LABS: VBG Base Excess -5.4 mmol/L (-2.4-2.3); VBG HCO3 20.3 mmol/L (23-30); VBG Oxygen Saturation 97.8 % (50-70); VBG PCO2 38.2 mmol/L (35-51); VBG PH 7.34 mmol/L (7.31-7.41); VBG PO2 113.8 mmol/L (28-40); VBG Total CO2 21.5 mmol/L (23-27)
--- NOTE | 2022-09-12 19:27 | ECG_ITS ---
APPROVED REPORT Exam: Resting ECG HR:137 bpm ECG Measurements Heart Rate 137 AXES DE 154 P 67 QRSd 113 QRS 66 QT 297 T 23 QTc 377 Conclusion SINUS TACHYCARDIA MODERATE INTRAVENTRICULAR CONDUCTION DELAY [105+ ms QRS DURATION, 80+ ms Q/S IN V1/V2, NO Q AND 60+ ms R IN I/aVL/V5/V6] NONSPECIFIC ST & T-WAVE ABNORMALITY ABNORMAL ECG UNCONFIRMED REPORT Electronically signed by : Pantera Blue MD 09/17/2022 20:20:08
--- NOTE | 2022-09-12 19:37 | PC.NURSE ---
verbal orders for intubation medications, ekg obtained and vbg collected at this time. verbal orders from md: 20 etomodate 100 succ post-sedation propofol ordered by
--- NOTE | 2022-09-12 19:42 | XR_ITS ---
PROCEDURE INFORMATION: Exam: XR Chest Exam date and time: 09/12/2022 7:55 PM Age: 77 years old Clinical indication: Device placement; Other: Et tube placement; Additional info: Et tube palcement TECHNIQUE: Imaging protocol: Radiologic exam of the chest. Views: 1 view. COMPARISON: CR XR CHEST PORTABLE 09/12/2022 5:27 PM FINDINGS: Tubes, catheters and devices: ET tube placement. Tip approximately 6 cm above the amol. Lungs: Bilateral perihilar and lower lobe interstitial infiltrates. Findings have slightly progressed in the right upper lobe. Pleural spaces: Unremarkable. No pleural effusion. No pneumothorax. Heart/Mediastinum: Unremarkable. No cardiomegaly. Bones/joints: Unremarkable. IMPRESSION: 1. ET tube placement. Tip approximately 6 cm above the amol. 2. Persistent bilateral perihilar and lower lobe infiltrates . Findings compatible with congestive failure.
--- NOTE | 2022-09-12 19:49 | IR_ITS ---
APPROVED REPORT Patient Location: [facility]: RANDA Morris RT (R) PROCEDURES Left heart catheterization Left ventriculogram Selective coronary angiogram Drug-eluting stent deployment to the ostial dominant right coronary artery followed by drug-eluting stent deployment to the mid and distal dominant right coronary Drug-eluting stent deployment to the ostial left main artery Drug-eluting stent deployment to the proximal and mid LAD Drug-eluting stent deployment to the first diagonal artery Intravascular ultrasound to the LAD Placement of intra-aortic balloon pump INDICATION Cardiogenic shock, Acute ST elevation myocardial infarction as evidenced by new onset left bundle branch block, Multivessel coronary artery disease Informed consent was obtained prior to the procedure. COMPLICATIONS None Estimated Blood Loss: Less than 10 mls TECHNIQUE One percent lidocaine was used to anesthetize the right groin. The right femoral artery was accessed via the Seldinger technique. A 6 [place] Ze[place] sheath was placed in the right femoral artery and a 6 [place] guide catheter was placed in the right coronary artery to perform right coronary selective angiography. A critical ostial stenosis was identified with severe dampening upon engagement. Therapeutic heparin was administered giving a therapeutic ACT and a Choice PT extra-support wire was placed down the vessel followed by a 3.5 x 12 mm resolute [place] stent being deployed at 24 christian in the ostial segment. An additional 3.5 x 8 mm resolute [place] stent was placed proximal to this for stent and then deployed at 24 christian to post dilate. An additional 3.5 x 38 mm resolute Nick stent was deployed in the mid to distal segment at 14 christian reducing the stenosis. An additional 3.5 x 18 mm resolute Nick stent was placed distal to the first stent and deployed at 12 chrsitian to further reduce distal stenoses. The balloon was brought back and deployed at 20 christian to mesh the stents and then further post dilate. The balloon was then brought back to the ostial segment and deployed at 26 christian to post dilate. Following this a 6 [place]ander JL 4 guide catheter was placed in the left coronary cusp angiography demonstrated a severe ostial stenosis. Choice PT extra-support wire was then placed into the LAD and a 4 mm x 12 mm resolute Nick stent was deployed at 20 christian reducing the severe to critical stenosis to 0%. This allowed predilatation of the first diagonal artery and the LAD. A 2.75 x 22 mm resolute [place] stent was then placed in the proximal LAD at 20 christian reducing the stenosis. 2 mm balloon was placed into the diagonal artery and predilated. An additional 2 mm x 18 mm resolute Nick stent was placed in the ostial proximal segment of the diagonal artery and deployed at 14 christian. A 2 mm balloon was then placed in the proximal to mid LAD and deployed. This allowed placement of a 2.5 x 15 mm resolute [place] stent to be overlapping the first LAD stent in the distal segment. This was deployed at 20 christian. The balloon was brought back and deployed at 24 christian to post dilate. A wire was placed back into the diagonal artery and a 1.5 mm balloon was deployed at 18 christian in the ostial segment as well as placed distally and deployed at 12 christian to further post dilate and reduce distal spasm. At this point intravascular ultrasound probe was advanced into the left main artery and LAD which demonstrated a critical stenosis was identified in the proximal LAD. A 3 mm x 18 mm resolute [place] stent was placed in the distal portion of the first left main stent which was placed and then deployed at 24 christian into the LAD. The balloon was advanced distal to the first diagonal artery and deployed at 18 christian to post dilate and the
[2022-09-12 19:55] LABS: Troponin I 0.77 ng/ml (0.00-0.034)
--- NOTE | 2022-09-12 19:55 | PC.NURSE ---
critical troponin called by lab. notified
--- NOTE | 2022-09-12 21:57 | PC.NURSE ---
PT ARRIVED VIA STRETCHER TO FLOOR AT THIS TIME
[2022-09-12 22:22] LABS: ABG Base Excess -10.8 mmol/L (-2.4-2.3); ABG HCO3 15.2 mmhg (22.0-26.0); ABG Oxygen Saturation 94 % (90-100); ABG PCO2 29.9 mmhg (35.0-45.0); ABG PH 7.32 mmol/L (7.35-7.45); ABG PO2 79.1 mmhg (80-100); ABG TCO2 16.1 mmhg (23-27)
[2022-09-12 22:23] LABS: Oxygen 75 %; Tidal Volume 420; Vent Rate 18
--- NOTE | 2022-09-12 22:49 | EXP.HP ---
History of Present Illness *Reason for visit:: Wheezing shortness of breath and chest pain *History of present illness: This 77-year-old white female presented to the emergency room at [facility] with complaints of chest pain and shortness of breath. I attempted to copy the ER narrative but the computer is not allowing me to do so. Initially in the emergency room the patient seemed to stabilize. She was found to have a new left bundle branch block. After she received some metoprolol she became tachycardic and seem to move into respiratory failure and increased shortness of breath. She became hypoxic. She was intubated. There was elevation of her troponin. The emergency room physician contacted cardiology. Arrangements were made for cardiac catheterization. The patient has had recent cardiac work-ups with an echo showing an ejection fraction of 55%. She has not shown evidence in the past of congestive heart failure. She is not a smoker. She recently lost her to heart disease. She has been undergoing evaluation for a neoplasm of the colon which appears to be colon cancer. She had endoscopy by Dr. Yuan. She is being seen by Dr. Fong. Cardiac catheterization was performed this evening by Dr. Mason Winkler. The patient had extensive coronary artery disease. She received 9 stents. Her ejection fraction appeared to be markedly reduced at 10%. She had very poor anterior wall function. An aortic balloon pump was also placed. At the time of this evaluation after the patient has been transferred to [facility]. She is on a ventilator. The aortic balloon pump is in place. She seems to be stabilizing rather rapidly. With the aortic balloon pump off her pressure is greater than 100/70. Dr. Winkler has decided to remove the balloon pump. She has diuresed over 2000 cc. [facility] Medical History Acquired hypothyroidism Breast cancer Fever blister History of pneumonia Hypertension Neoplasm of skin of upper arm Pulmonary interstitial fibrosis Surgical History History of colonoscopy History of mastectomy History of surgery BREAST IMPLANTS Family History Other Cancer Coronary artery disease Hypertension Social History (Updated 09/12/22 @ 23:01 by Sintia Harris MD) Smoking Status: Never smoker alcohol intake: never substance use type: denies use current occupational status: retired Travel in the last 8 weeks: None household members: none and other details: Spouse is recently from cardiac disease. housing: house lives independently: Yes education level: high school caffeine: Yes special kristin needs: No agree to transfusion: No do you feel safe at home: Yes victim of physical abuse: No victim of emotional abuse: No victim of sexual abuse: No would you like helpful sources: No Review of Systems Review of Systems Review of systems:: unable to obtain (Though she is usually very healthy. She exercises regularly. The recent most significant change is the evaluation of the colon neoplasm.) *Respiratory Respiratory: Reports as per HPI *Gastrointestinal Gastrointestinal: Reports as per HPI Integumentary/Breasts Skin/Breast: Reports other (History of implants and capsular scarring and contracture bilaterally) Meds Home Medications and Allergies Home Medications Medication Instructions Recorded Confirmed Type alendronate 70 mg tablet 70 mg PO WEEKLY . 05/22/22 09/11/22 History aspirin 81 mg tablet,delayed 81 mg PO DAILY HEART HEALTHY 05/22/22 09/11/22 History release (Adult Low Dose Aspirin) albuterol sulfate 90 mcg/actuation 2 inh inhalation QID PRN shortness 08/27/22 09/11/22 Rx aerosol inhaler of breath or wheezing #8.5 grams amlodipine 2.5 mg tablet 2.5 mg PO DAILY BP 09/09/22 09/11/22
--- NOTE | 2022-09-12 23:00 | PC.NURSE ---
unable to complete all admission paperwork due to pt intubated and sedated and no family present
--- NOTE | 2022-09-12 23:02 | SUR.OPER ---
Beside report given to Shabana HUI on 2nd floor, propofol gtt going at 60, per verbal order by dr barrera.
--- NOTE | 2022-09-12 23:10 | INFXCTL.NOTE ---
heparin drip stopped per verbal order from MD Winkler after removing sheath
--- NOTE | 2022-09-12 23:14 | PC.NURSE ---
pt admitted at 2215 to 216 from labeling machine operator on ventilator at 50% FIO2 with balloon pump in place, integrillin drip on at 2mcg/kg/min, heparin drip on at 800units/hr, and propofol on at 60mcg/kg/min; rosas catheter inserted by labeling machine operator RN's at bedside; Bel Winkler and Steven to bedside and after pt's cardiac output improved and pt diuresed large amounts of UOP MD Winkler pulled balloon from sheath, sheath left in place until 2300 and MD Winkler perclosed sheath site at bedside at 2305; dressing applied to right groin site at 2305, site CDI no s/s hematoma or drainage;
--- NOTE | 2022-09-12 23:19 | SUR.OPER ---
8f sheath per right groin removed per perclose by Dr barrera, hemostasis achieved, no s/s of bleeding or hematoma, sterile dressing applied.
[2022-09-12 23:31] LABS: Microscopic, Urine URINE MICROSCOPIC (MICROSCOPIC)
[2022-09-12 23:35] LABS: Appearance,Urine CLEAR (Clear); Bilirubin,Urine Negative (Negative); Blood, Urine 2+ (Negative); Color,Urine YELLOW (Yellow); Glucose,Urine (UA) Negative (Negative); Ketones,Urine Negative (Negative); Leukocyte Esterase,Urine Negative (Negative); Nitrate,Urine Negative (Negative); Protein,Urine Negative (Negative); Specific Gravity, Urine 1.015 (1.005-1.030); Urobilinogen,Urine 0.2 EU/dl (0.2)
[2022-09-12 23:43] LABS: WBC,Urine 20-50 #/hpf (0-3)
[2022-09-13] VITALS (71 sets, daily range): BP systolic 69–136; BP diastolic 35–124; PULSE 88–123; RESP 18–28; TEMP 36.6–37.4; O2SAT 2–110; BMI 21.9
--- NOTE | 2022-09-13 00:15 | PC.NURSE ---
decreased propofol drip to 40mcg/kg/min
--- NOTE | 2022-09-13 00:20 | PC.NURSE ---
decreased propofol drip to 20mcg/kg/min
--- NOTE | 2022-09-13 00:23 | PC.NURSE ---
called MD Winkler
--- NOTE | 2022-09-13 00:40 | PC.NURSE ---
Addendum entered by Francisca Barcenas RN 09/13/22 00:42: 150mL/hr MIVF for total of 1 bag Original Note: spoke with MD barrera about pt's hypotension, ordered 500mL NS bolus and then after that start 150mL/hr NS MIVF; bolus started, will send to night watch
--- NOTE | 2022-09-13 00:54 | PC.NURSE ---
pt's bp responding to bolus, pt waking up and attempting to pull OETT, increased propofol drip to 40mcg/min
--- NOTE | 2022-09-13 01:20 | PC.NURSE ---
ventilator settings: FIO2 70%, TV 430, PEEP 5, RR 18
--- NOTE | 2022-09-13 02:45 | PC.NURSE ---
RT Will decreased FIO2 to 60% and RN sat pt's HOB up to 30 degrees
--- NOTE | 2022-09-13 02:52 | PC.NURSE ---
spoke with MD Harris about pt's hypotension, instructed to give 200mL NS bolus, bolus started
--- NOTE | 2022-09-13 02:52 | PC.NURSE ---
spoke with MD Harris about pt's hypotension, instructed to give 200mL NS bolus, bolus started and will send form to night watch
--- NOTE | 2022-09-13 03:49 | PC.NURSE ---
spoke with MD Harris about pt's continued hypotension, instructed to give second 200mL NS bolus and then if doesn't bring bp up can start levophed drip
--- NOTE | 2022-09-13 05:54 | PC.NURSE ---
decreased propofol drip to 10mcg/kg/min (from 30mcg/kg/min) for sbt this am
--- NOTE | 2022-09-13 06:00 | PC.NURSE ---
held propofol for sbt, pt's hr slightly increased and rr increased but tolerating 40% pressure support, oxygen saturations are 96% on 40% pressure support
--- NOTE | 2022-09-13 07:00 | PC.NURSE ---
RT Shoshana extubated pt per telephone order from MD Winkler to 3LNC, oxygen saturations 92-94% on 3LNC, oral secretions suctioned, pt following commands, talking but hoarse, and answers orientation questions appropriately
--- NOTE | 2022-09-13 07:15 | PC.NURSE ---
integrillin drip complete per order and sbp/map WNL so held levo drip at this time
--- NOTE | 2022-09-13 07:18 | PC.NURSE ---
bp 77/38, restarted levo drip at 4mcg/min
--- NOTE | 2022-09-13 07:26 | PC.NURSE ---
bp 88/43, increased levo drip to 6mcg/min
[2022-09-13 08:07] LABS: Basophils % 0.3 % (0.1-2.0); Eosinophils % 0.1 % (0.1-12.0); Hematocrit 25.2 % (37.0-47.0); Lymphocytes # 0.7 K/mm3 (0.7-4.5); Lymphocytes % 4.2 % (10-50); Mean Corpuscular HGB Conc 29.3 g/dL (31.8-35.4); Mean Corpuscular Hemoglobin 21.4 pg (27.0-31.2); Mean Corpuscular Volume 73.1 fl (81-99); Mean Platelet Volume 8.7 fl (7.4-10.4); Monocytes # 0.3 K/mm3 (0.1-1.0); Neutrophils # 14.4 K/mm3 (1.8-7.8); Neutrophils % 93.4 % (37.0-80.0); Platelet Count 396 K/mm3 (142-424); Red Blood Count 3.45 M/mm3 (4.20-5.40); Red Cell Distribution Width 17.3 % (11.5-17.5); White Blood Count 15.4 K/mm3 (4.8-10.8)
[2022-09-13 08:11] LABS: MANUAL DIFFERENTIAL MANUAL DIFFERENTIAL (MANUAL DIFF)
[2022-09-13 08:19] LABS: Alanine Aminotransferase 118 U/L (12-78); Albumin Level 3.4 g/dl (3.5-5.0); Albumin/Globulin Ratio 1.4 (1.1-1.8); Alkaline Phosphatase 95 U/L (38-126); Anion Gap 22.5 mEq/L (5-15); Aspartate Amino Transferase 286 U/L (14-36); Bilirubin,Total 0.3 mg/dl (0.2-1.3); Blood Urea Nitrogen 32 mg/dl (7-17); Calcium 8.6 mg/dl (8.4-10.2); Carbon Dioxide 16 mmol/L (22.0-30.0); Chloride 107 mmol/L (98-107); Creatinine Clearance Estimated 35 mL/min (50-200); Estimated Glomerular Filt Rate 40 ml/min (>60); GFR (African American) 48 ML/MIN (>60); Globulin 2.4 g/dL (1.3-3.2); Glucose 135 mg/dl (74-100); Potassium 3.5 mmoL/L (3.5-5.1); Sodium 142 mmol/L (136-145); Total Protein,Serum 5.8 g/dl (6.3-8.2)
--- NOTE | 2022-09-13 08:24 | PC.NURSE ---
Dr. Winkler paged. clarified order for integrilin drip. Order to give brillinta po and if patient able to tolerate then keep integrilin drip off. Order to give normal saline at 150 ml/hr for [address] Winkler of 20 beat run of v-tach but patient now in sinus tachycardia with no signs or symptoms. Dr. Winkler also notified that patient was placed back on levo drip due to blood pressures.
[2022-09-13 08:49] LABS: Hemoglobin 7.4 g/dL (12.2-16.2)
--- NOTE | 2022-09-13 09:05 | XR_ITS ---
PROCEDURE INFORMATION: Exam: XR Chest Exam date and time: 09/13/2022 9:42 AM Age: 77 years old Clinical indication: Shortness of breath; Additional info: Follow up exam stemi TECHNIQUE: Imaging protocol: Radiologic exam of the chest. Views: 1 view. COMPARISON: CR XR CHEST PORTABLE 09/12/2022 7:55 PM FINDINGS: Lungs: Emphysematous change, interstitial disease, and improved airspace disease. Pleural spaces: Questionable small pleural effusions. Heart/Mediastinum: No cardiomegaly. Prominence of the pulmonary vasculature. Bones/joints: Osteopenia and degenerative change. Soft tissues: Calcified bilateral breast implants. IMPRESSION: Emphysematous change, interstitial disease, and improved airspace disease.
--- NOTE | 2022-09-13 09:14 | HMH.PHAINT1 ---
Pharmacy Intervention Comments: Medication reconciliation completed via external fill history and patient interview. -Elizabeth Menjivar, PharmD Candidate 2022
--- NOTE | 2022-09-13 09:36 | PC.NURSE ---
Levophed drip at 8mcg while NS started at 0851.
--- NOTE | 2022-09-13 10:09 | PC.NURSE ---
NG tube taken out per Dr. Harris verbal order at 6367
--- NOTE | 2022-09-13 12:03 | PC.NURSE ---
Addendum entered by Delores Peterson RN 09/13/22 12:06: levophed drip Original Note: Drip increased to 10mcg due to blood pressure 84/38 map 53 heart rate 97
[2022-09-13 14:01] LABS: Anisocytosis 1+; Eosinophils % 1 % (0-3); Hypochromasia 2+; Lymphocytes % 6 % (10-50); Neutrophils % 93 % (42-76); Platelet Estimate Normal; Total Cells Counted 100
[2022-09-13 14:02] LABS: Microcytosis 1+
--- NOTE | 2022-09-13 14:17 | EXP.ACUTE.PN ---
Subjective *Date: 09/13/22 *Time: 14:17 Interval history: She was extubated around 7:00 this morning. She has still required some Levophed. She is awake and alert and not in distress. She does have a cough that is slightly productive. She describes the shortness of breath and chest pain that brought her into the hospital. We discussed the pulmonary respiratory issues that preceded her hospitalization. Her anemia has worsened with a hemoglobin of 7.4. Her white count is still elevated at 15.4. I discussed with patient and family the note that I had received from Dr. Yuan indicating that she has a colon carcinoma. Patient denies awareness of any blood loss through the stool. We discussed timing of surgery vis-?-vis her current cardiac and respiratory status. Medical Exam Vital signs and Labs for Last 24 Hours: Vital Signs Temp Pulse Pulse Resp BP BP Pulse Ox 09/13/22 13:30 111 H 22 105/46 L 96 09/13/22 12:00 98.0 F 09/13/22 13:00 105 H 21 104/42 L 95 09/13/22 12:30 116 H 21 112/46 L 97 09/13/22 11:30 97 H 20 87/38 L 99 09/13/22 10:30 96 H 20 92/45 L 100 09/13/22 10:00 98 H 21 92/40 L 09/13/22 09:30 99 H 20 93/39 L 100 09/13/22 12:00 97 H 20 84/38 L 98 09/13/22 11:00 99 H 20 94/38 L 97 09/13/22 08:55 96 H 24 85/40 L 100 09/13/22 08:30 106 H 23 103/43 L 99 09/13/22 10:00 96 H 21 92/40 L 99 09/13/22 09:30 99 H 24 93/39 L 100 09/13/22 09:15 99 H 24 98/38 L 100 09/13/22 09:00 102 H 23 105/38 L 102 H 09/13/22 08:15 101 H 23 96/41 L 98 09/13/22 09:00 98.6 F 102 H 24 105/38 L 100 09/13/22 08:00 98.4 F 09/13/22 07:50 97 H 24 87/37 L 97 09/13/22 07:45 103 H 24 88/39 L 09/13/22 07:40 103 H 22 91/40 L 99 09/13/22 07:35 103 H 23 92/40 L 97 09/13/22 07:25 104 H 25 H 88/43 L 97 09/13/22 07:20 102 H 24 80/61 L 09/13/22 08:00 101 H 25 H 78/43 L 2 L 09/13/22 07:30 103 H 24 100/37 L 09/13/22 07:15 104 H 23 77/36 L 94 L 09/13/22 07:00 106 H 26 H 98/41 L 96 09/13/22 06:59 98 09/13/22 06:17 100 09/13/22 04:00 94 H 09/13/22 00:00 92 H 09/12/22 22:28 98 H 09/13/22 04:30 94 H 20 97/43 L 100 09/13/22 06:30 111 H 24 108/36 L 97 09/13/22 06:15 112 H 25 H 112/39 L 97 09/13/22 06:00 99.4 F 88 22 103/46 L 96 09/13/22 05:00 91 H 19 97/44 L 100 09/13/22 03:30 92 H 24 80/41 L 100 09/13/22 02:30 91 H 22 81/38 L 100 09/13/22 01:30 92 H 20 86/40 L 100 09/13/22 04:00 98.4 F 94 H 24 81/36 L 100 09/13/22 01:00 101 H 20 92/37 L 100 09/13/22 04:00 20 09/13/22 04:00 100 09/13/22 03:00 94 H 22 78/42 L 100 09/13/22 02:00 97.8 F 96 H 21 80/38 L 100 09/13/22 00:45 97 H 24 136/124 H 100 09/13/22 00:25 92 H 18 80/40 L 100 09/13/22 00:21 92 H 18 69/38 L 100 09/13/22 00:15 93 H 18 74/43 L 100 09/13/22 00:00 95 H 18 87/42 L 100 09/12/22 23:35 95 H 18 101/42 L 100 09/12/22 23:30 96 H 18 96/49 L 100 09/12/22 23:25 98 H 18 94/46 L 100 09/12/22 23:20 91 H 18 93/46 L 100 09/12/22 23:10 98 H 18 105/46 L 100 09/12/22 23:06 96 H 18 111/47 L 100 09/12/22 23:00 96.5 F L 94 H 18 105/45 L 100 09/12/22 22:57 94 H 18 100/46 L 97 09/12/22 19:30 18 09/12/22 22:45 95 H 18 102/48 L 94 L 09/12/22 22:42 94 H 18 100/44 L 91 L 09/12/22 22:35 96 H 18 100/45 L 91 L 09/12/22 22:30 97 H 20 120/37 L 90 L 09/12/22 22:20 96 H 20 112/48 L 90 L 09/13/22 02:00 19 09/13/22 00:33 97 H 18 73/38 L 100 09/12/22 23:45 97 H 18 93/45 L 100 09/12/22 23:15 96.8 F L 97 H 18 100/49 L 100 09/12/22 23:03 92 H 18 84/42 L 100 09/12/22 22:54 94 H 18
--- NOTE | 2022-09-13 14:31 | PC.NURSE ---
levophed drip titrated down to 8mcg due to bp 126/49 hr 123 at 1415
--- NOTE | 2022-09-13 15:52 | PC.NURSE ---
Levophed drip titrated to 6 mcg as bp 124/49 hr 115 at 1530
--- NOTE | 2022-09-13 17:47 | PC.NURSE ---
called lab to find out if blood was ready for transfusion. Was told by Ritesh in lab that a crossmatch still needed to be ordered and blood was not ready. Attempted to put in crossmatch order and called Ritesh in lab back as darling was not showing any orders to choose from. Ritesh from lab stated he would put crossmatch order in.
--- NOTE | 2022-09-13 19:40 | PC.NURSE ---
first unit ordered prbc started
--- NOTE | 2022-09-13 20:00 | PC.NURSE ---
bp 112/48 (69), held levo drip (was on 2mcg/min)
--- NOTE | 2022-09-13 22:30 | PC.NURSE ---
second ordered unit prbc started
[2022-09-14] VITALS (34 sets, daily range): BP systolic 77–151; BP diastolic 39–90; PULSE 80–134; RESP 16–26; TEMP 36.5–36.9; O2SAT 89–100; BMI 22.3
[2022-09-14 02:20] LABS: Hematocrit 30.3 % (37.0-47.0)
[2022-09-14 02:21] LABS: Hemoglobin 9.6 g/dL (12.2-16.2)
[2022-09-14 06:35] LABS: Basophils % 0.2 % (0.1-2.0); Eosinophils % 0.1 % (0.1-12.0); Hematocrit 28.5 % (37.0-47.0); Hemoglobin 8.8 g/dL (12.2-16.2); Lymphocytes # 0.7 K/mm3 (0.7-4.5); Lymphocytes % 5.2 % (10-50); Mean Corpuscular HGB Conc 30.9 g/dL (31.8-35.4); Mean Corpuscular Hemoglobin 24.1 pg (27.0-31.2); Mean Corpuscular Volume 77.9 fl (81-99); Mean Platelet Volume 9.4 fl (7.4-10.4); Monocytes # 0.7 K/mm3 (0.1-1.0); Monocytes % 4.9 % (1.7-9.3); Neutrophils # 12.5 K/mm3 (1.8-7.8); Neutrophils % 89.5 % (37.0-80.0); Platelet Count 192 K/mm3 (142-424); Red Blood Count 3.65 M/mm3 (4.20-5.40); Red Cell Distribution Width 18.7 % (11.5-17.5)
[2022-09-14 06:38] LABS: MANUAL DIFFERENTIAL MANUAL DIFFERENTIAL (MANUAL DIFF)
[2022-09-14 06:43] LABS: Alanine Aminotransferase 138 U/L (12-78); Albumin Level 3.4 g/dl (3.5-5.0); Albumin/Globulin Ratio 1.4 (1.1-1.8); Alkaline Phosphatase 92 U/L (38-126); Anion Gap 15.2 mEq/L (5-15); Aspartate Amino Transferase 290 U/L (14-36); Bilirubin,Total 0.7 mg/dl (0.2-1.3); Blood Urea Nitrogen 32 mg/dl (7-17); Calcium 8.6 mg/dl (8.4-10.2); Carbon Dioxide 19 mmol/L (22.0-30.0); Chloride 111 mmol/L (98-107); Creatinine Clearance Estimated 46 mL/min (50-200); Estimated Glomerular Filt Rate 53 ml/min (>60); GFR (African American) 65 ML/MIN (>60); Globulin 2.4 g/dL (1.3-3.2); Glucose 108 mg/dl (74-100); Potassium 3.2 mmoL/L (3.5-5.1); Sodium 142 mmol/L (136-145); Total Protein,Serum 5.8 g/dl (6.3-8.2)
[2022-09-14 07:44] LABS: Lymphocytes % 8 % (10-50); Monocytes % 7 % (2-9); Neutrophils % 85 % (42-76); Nucleated Red Blood Cells 1; Total Cells Counted 100
[2022-09-14 07:45] LABS: Anisocytosis 1+; Hypochromasia 1+; Microcytosis 1+; Platelet Estimate Normal
--- NOTE | 2022-09-14 07:47 | EXP.PN ---
Subjective *Date: 09/14/22 *Time: 07:47 Interval history: She slept at intervals during the night. Patient denies chest pain and shortness of breath. She continues mostly with a nonproductive cough. She is in the process of having an echocardiogram. She states she was unable to eat yesterday due to the sore throat but was able to take a few liquids. She continues to have Burger catheter. Bowels have not moved. She denies any abdominal discomfort. Blood chemistries show low potassium at 3.2. BUN is 32 and creatinine is 1. White blood cell count is 14,000 with a hemoglobin of 8.8 and hematocrit of 28.5. Platelet count is normal. Chest x-ray from yesterday Shows emphysematous changes, interstitial disease and improved airspace disease. Urine culture is negative thus far. Blood pressure is stabilized off Levophed. O2 sats are 98% on O2 at 2 L/min. Weight is 142 pounds. Patient did receive 2 units of packed red blood cells yesterday. Urinary output has been 1250 mL. Exam Data for Last 24 hours Vital signs and Labs for Last 24 Hours: Temp Pulse Resp BP Pulse Ox FiO2 97.7 F 100 H 20 118/55 L 98 28 09/14/22 04:00 09/14/22 06:00 09/14/22 06:00 09/14/22 06:00 09/14/22 06:00 09/13/22 20:31 Laboratory Results - last 24 hr 09/13/22 00:30: Blood Type B Positive, Antibody Screen Negative, Crossmatch ([facility]) See Detail 09/13/22 07:26: WBC 15.4 H, RBC 3.45 L, Hgb 7.4 L D, Hct 25.2 L, MCV 73.1 L, MCH 21.4 L, MCHC 29.3 L, RDW 17.3, Plt Count 396, MPV 8.7, Neut % (Auto) 93.4 H, Lymph % (Auto) 4.2 L, [place] % (Auto) 2.0, Eos % (Auto) 0.1, Baso % (Auto) 0.3, Neut # (Auto) 14.4 H, Lymph # (Auto) 0.7, [place] # (Auto) 0.3, Eos # (Auto) 0.0, Baso # (Auto) 0.0, Total Counted 100, Neutrophils % (Manual) 93 H, Lymphocytes % (Manual) 6 L, Eosinophils % (Manual) 1, Platelet Estimate Normal, RBC Morphology Not Reportable, Hypochromasia 2+, Anisocytosis 1+, Microcytosis 1+ 09/13/22 07:26: Sodium 142, Potassium 3.5, Chloride 107, Carbon Dioxide 16 L, Anion Gap 22.5 H, BUN 32 H D, Creatinine 1.30 H D, Estimated Creat Clear 35, Estimated GFR 40 L, Est GFR ( Amer) 48 L D, Glucose 135 H, Calcium 8.6, Total Bilirubin 0.3, AST 286 H D, ALT 118 H D, Alkaline Phosphatase 95, Total Protein 5.8 L, Albumin 3.4 L, Globulin 2.4, Albumin/Globulin Ratio 1.4 09/14/22 02:10: Hgb 9.6 L D, Hct 30.3 L 09/14/22 05:55: WBC 14.0 H, RBC 3.65 L, Hgb 8.8 L, Hct 28.5 L, MCV 77.9 L, MCH 24.1 L, MCHC 30.9 L, RDW 18.7 H, Plt Count 192 D, MPV 9.4, Neut % (Auto) 89.5 H, Lymph % (Auto) 5.2 L, [place] % (Auto) 4.9, Eos % (Auto) 0.1, Baso % (Auto) 0.2, Neut # (Auto) 12.5 H, Lymph # (Auto) 0.7, [place] # (Auto) 0.7, Eos # (Auto) 0.0, Baso # (Auto) 0.0, Total Counted 100, Neutrophils % (Manual) 85 H, Lymphocytes % (Manual) 8 L, Monocytes % (Manual) 7, Nucleated RBCs 1, Platelet Estimate Normal, Hypochromasia 1+, Anisocytosis 1+, Microcytosis 1+ 09/14/22 05:55: Sodium 142, Potassium 3.2 L, Chloride 111 H, Carbon Dioxide 19 L, Anion Gap 15.2 H, BUN 32 H, Creatinine 1.00 D, Estimated Creat Clear 46, Estimated GFR 53 L, Est GFR ( Amer) 65 D, Glucose 108 H, Calcium 8.6, Total Bilirubin 0.7, AST 290 H, ALT 138 H, Alkaline Phosphatase 92, Total Protein 5.8 L, Albumin 3.4 L, Globulin 2.4, Albumin/Globulin Ratio 1.4 I & O for Last 24 hours: Intake & Output 09/11/22 09/12/22 09/13/22 09/14/22 11:59 11:59 11:59 11:59 Intake Total 411 / 411 1742.01 / 1742.01 Output Total 2640 / 2640 850 / 850 Balance -2229 / -2229 892.01 / 892.01 Weight 140 lb 3 oz 142 lb 2.994 oz Microbiology Reports for the Last 24 Hours: Microbiology 09/12/22 22:50 Urine,Catheterized Urine Culture - Preliminary NO GROWTH AFTER 24 HOURS Constitutional Constitutional: no acute distress Comments: Appears comfortable. Having echocardiogram completed. *Routine Respiratory Exam Respiratory: Present crackles (Fine bibasilar crackles) *Routine Cardiovascular Exam Cardio
--- NOTE | 2022-09-14 08:51 | PC.NURSE ---
called and spoke with Nyla Guzman in regards to order of transfuse 1 unit of blood on hold. pt does not have blood on hold at this time. 0849 new orders from nyla guzman, order 2 units of blood, 1 to transfuse and 1 to hold.
--- NOTE | 2022-09-14 11:36 | DIET.NUTRFU ---
RD clarified diet with nursing, patient tolerated clear liquids for breakfast and it is ready for soft foods for lunch. Kitchen made aware
--- NOTE | 2022-09-14 11:59 | EXP.CARD.CON ---
History of Present Illness History of Present Illness Consult date: 09/14/22 Requesting physician: Sintia Harris Consult reason: chest pain Chief complaint: chest pain Additional Medical History:: Past Medical History: colon neoplasm- colon carcinoma Htn Cath report 09/12/2022 ANGIOGRAPHIC RESULTS The left main artery Has an ostial 80% stenosis The left anterior descending artery Has severe calcified diffuse 80% stenoses with mid vessel 90% stenosis with a distal segment subtotally occluded.? The first diagonal artery is small to medium in size and is subtotally occluded proximally The circumflex artery Is nondominant and has a proximal tubular 40 to 50% stenosis with mild atheromatous plaque large obtuse marginal artery The right coronary artery Is a large dominant vessel and has an ostial 80 to 90% stenosis with a mid vessel to distal 80 and 90% stenosis The STRONG ventriculogram reveals Severe left ventricular dilatation severe global hypokinesis with estimated ejection fraction 15% The left ventricular end-diastolic pressure 40 mmHg IMPRESSION Cardiogenic shock as described above with successful percutaneous revascularization of the left main artery LAD first diagonal artery and ostial mid and distal dominant right coronary Successful placement of intra-aortic balloon pump Severe left ventricular dilatation with severely reduced ejection fraction Elevated LVEDP PLAN 1. Integrilin drip 2. Patient only received 90 mg of Brilinta and requires an additional dose.? Continue 90 mg twice daily 3. Aspirin 81 mg daily 4. Supportive care using intra-aortic balloon pump 5. Supportive care using ventilator for cardiogenic shock and acute respiratory failure 6. LDL less than 55 to be achieved with high intensity statin 7. Standard therapy for systolic congestive heart failure which should include Entresto and beta-blockers once hemodynamically stable History of present illness: 77 year old white female with the above past medical hx presented to ED on 09/12/2022 via ems with complaint of new onset midsternal chest pressure, 8/10 radiating to back with soa which initially improved greatly with nitro and aspirin. Patient reports symptoms had started just prior to calling EMS. Upon presentation to ER initial EKG was sr rate of 114 with a LBBB. After presenting to ER patient had significant decompensation with tachycardia and worsening hypoxia and respiratory effort requiring intubation. Patient was then transferred to the earthmoving labourer where she received a total of 9 stents and was placed on an intra-aortic balloon pump for cardiogenic shock. EF was noted to be about 10%. Patient improved quickly and the balloon pump was removed less than an hour after placement. Patient was extubated yesterday and remains off of all drips. Patient reports today she feels good other than feeling fatigued. patient recently was dx with a colon mass which turned out to be colon carcinoma which she sees Dr. Batista for. Hemoglobin did drop as low as 7.4 and patient has received 2 units packed red blood cell with the third pending. Hemoglobin today 8.8. Repeat echo preliminary report shows an estimated ejection fraction of 35 to 45%. [facility] Medical History (Updated 09/14/22 @ 13:11 by Zari Mcmahon APRN) Acquired hypothyroidism Blood loss anemia Breast cancer Bronchitis Colon cancer Emphysema lung Fever blister History of pneumonia Hypertension Neoplasm of skin of upper arm Pulmonary interstitial fibrosis Surgical History History of colonoscopy History of mastectomy History of surgery Family History Other Cancer Coronary artery disease Hypertension Social History (Updated 09/13/22 @ 06:30 by Francisca Barcenas RN) Smoking Status: Never smoker alcohol intake: never substance use type: denies use current occupational status:
[2022-09-14 13:31] LABS: Chol/HDL Ratio 2.6 (1-3.5); Cholesterol 127 mg/dl (140-200); HDL Cholesterol 48 mg/dl (40-60); Triglycerides 154 mg/dl (30-150); VLDL Cholesterol 31 mg/dL (0-40)
[2022-09-14 13:41] LABS: Direct LDL Cholesterol 43.02 mg/dL (100-129)
--- NOTE | 2022-09-14 14:06 | PC.NURSE ---
Called Nyla Guzman at 1353. pt blood is to be infused within 3 hrs, at start of transfusion, pt iv began leaking and needed to be restarted. Staff had difficulty with insertion. ok per Nyla Guzman to transfuse blood over 4 hrs. order was also received for pt to have albuterol inhaler 2 puffs q4h prn soa.
--- NOTE | 2022-09-14 14:12 | PC.NURSE ---
1355 attempted to wean pt o2. pt was informed of being transitioned to RA, pt appeared to begin to panic yet was agreeable to weaning. pt was advised that if she felt short of air she could call for staff to reapply o2 or she could reapply it herself if she felt comfortable. Pt was on room air for less than 5 mins when family reapplied o2 r/t o2 sat (that did not appear to have a good pleth) reading low. upon entering the room family was reapplying o2 and pt appeared panicked. pt was informed that her albuterol inhaler was being reordered.
--- NOTE | 2022-09-14 15:40 | PC.NURSE ---
Left message with Faviola in [facility] office asking if it was ok for pt to be transferred out of stepdown 1531. call returned at 1537: ok to be transferred out of stepdwon per Dr Harris. Clarified with Zari in cardiology if it was ok for pt to be transferred out of stepdown from their standpoint 1539. 1541 ok for pt to be transferred out of stepdown.
[2022-09-14 16:08] LABS: Hematocrit 33.5 % (37.0-47.0)
[2022-09-14 16:15] LABS: Hemoglobin 11.1 g/dL (12.2-16.2)
--- NOTE | 2022-09-14 16:26 | PC.NURSE ---
[address] Harris's office in regards to pt statement that MD was supposed to order her something for the phlegm in her throat. Message left with Meera [address] Harris's office, pt is having periods of anxiety where her hr is elevated in the 120-140 range (sinus tach). pt lungs remain clear but pt states that she feels like she cannot breath. pt o2 sats remain 99-100. pt was recently started on hydroxyzine 25mg bid prn anxiety. request that md order something for pt anxiety. message left with meera in office.
--- NOTE | 2022-09-14 17:00 | PC.NURSE ---
[address] Harris in reference to pt frequent periods of sinus tachycardia (120-140), soa during these episodes. [address] harris. new orders as follow restart home meds amlodipine 2.5 qd protonix 40 qhs armor thyroid 60 qam oxazepam 10mg tid rosalinda guafinesin 600mg qid TSH level give dose of coreg now 1715 reassessed pt again for the 3rd time since pt complains of wheezing. pt has had noted crackles in trachea, but lung pineda remained clear during previous reassessments. at this time crackles were noted throughout lung pineda. Dr Paniagua (data collection associate MD) was paged at this time. call returned at 1745. Dr Harris also available for update on pt condition. order received for pt to have catheter [id number] if purwic is not feasible. 1718 Dr Winkler was called at this time. updated on pt status throughout the day, including periods of tachycardia and soa. notified h.h 8.8/28.5 -11.1/33.5. new orders for lasix 80mg times 1 dose iv now.
--- NOTE | 2022-09-14 19:46 | PC.NURSE ---
80mg Lasix given per telephone order from MD Winkler
--- NOTE | 2022-09-14 19:53 | PC.NURSE ---
[address] Winkler 185 page returned. updated that pt has only had approx 200ml urine out since admin of lasix at 1730. pt hr is sustaining the 130's sats are 88-89 on 2lpm. new orders at this time: start milrinone drip 0.125mcg/kg/min, lasix 80mg iv again, 1 gram chlorathiazide (to be started if milrinone doesn't work ). may place pt on levophed drip if pt pressures necessitate it.
--- NOTE | 2022-09-14 21:06 | PC.NURSE ---
milrinone drip started prior to shift change, HR is coming down to 120's from 130's; bp's WNL so have not started levo, but have ready if needed; lasix given at 194, pt put out 200mL yellow urine; started second ordered diuretic chlorothiazide at 2100
--- NOTE | 2022-09-14 21:33 | PC.NURSE ---
HR stabliziling more now is 109-115
--- NOTE | 2022-09-14 23:40 | PC.NURSE ---
levophed drip started at 2mcg/min for bp 80/42 (54)
[2022-09-15] VITALS (38 sets, daily range): BP systolic 66–109; BP diastolic 36–65; PULSE 77–124; RESP 12–26; TEMP 36.5–36.9; O2SAT 94–100; BMI 23.4
--- NOTE | 2022-09-15 02:30 | PC.NURSE ---
2345-bp 88/43, increased levo drip to 4mcg/min 2347-pt had 150mL yellow urine out per rosas 2350-bp 83/45, increased levo drip to 6mcg/min 2355-bp 89/45, increased levo drip to 8mcg/min 0000-bp 88/43, increased levo drip to 10mcg/min 0005-bp 86/48, increased levo drip to 12mcg/min 0010-bp 88/44, increased levo drip to 14mcg/min 0015-bp 87/45, increased levo drip to 16mcg/min 0100-pt diuresed 700mL yellow urine in rosas catheter 0220-bp 84/48, increased levo drip to 18mcg/min 0230-bp 83/47, increased levo drip to 20mcg/min 0240-pt had 200mL yellow urine out in rosas
--- NOTE | 2022-09-15 02:30 | PC.NURSE ---
2345-bp 88/43, increased levo drip to 4mcg/min 2350-bp 83/45, increased levo drip to 6mcg/min 2355-bp 89/45, increased levo drip to 8mcg/min 0000-bp 88/43, increased levo drip to 10mcg/min 0005-bp 86/48, increased levo drip to 12mcg/min 0010-bp 88/44, increased levo drip to 14mcg/min 0015-bp 87/45, increased levo drip to 16mcg/min 0100-pt diuresed 700mL yellow urine in rosas catheter 0220-bp 84/48, increased levo drip to 18mcg/min 0230-bp 83/47, increased levo drip to 20mcg/min 0240-pt had 200mL yellow urine out in rosas
--- NOTE | 2022-09-15 03:22 | PC.NURSE ---
0315-bp 76/38, increased levo drip to 26mcg/min 0320-pt had 250 mL yellow urine from rosas
--- NOTE | 2022-09-15 03:59 | PC.NURSE ---
bp 85/44, went up to 28mcg/min on levo pt had 100mL yellow UOP from rosas
--- NOTE | 2022-09-15 04:50 | PC.NURSE ---
notified MD Winkler of pt's hypotension and UOP over shift, instructed RN to stop milrinone drip at this time and try to wean levo is possible; milrinone drip stopped
[2022-09-15 05:52] LABS: MANUAL DIFFERENTIAL MANUAL DIFFERENTIAL (MANUAL DIFF)
[2022-09-15 06:15] LABS: Alanine Aminotransferase 335 U/L (12-78); Albumin Level 3.3 g/dl (3.5-5.0); Albumin/Globulin Ratio 1.2 (1.1-1.8); Alkaline Phosphatase 108 U/L (38-126); Anion Gap 12.9 mEq/L (5-15); Aspartate Amino Transferase 439 U/L (14-36); Basophils % 0.2 % (0.1-2.0); Bilirubin,Total 0.6 mg/dl (0.2-1.3); Blood Urea Nitrogen 44 mg/dl (7-17); Calcium 8.5 mg/dl (8.4-10.2); Carbon Dioxide 24 mmol/L (22.0-30.0); Chloride 107 mmol/L (98-107); Creatinine Clearance Estimated 38 mL/min (50-200); Eosinophils # 0.1 K/mm3 (0.0-0.4); Eosinophils % 0.3 % (0.1-12.0); Estimated Glomerular Filt Rate 40 ml/min (>60); GFR (African American) 48 ML/MIN (>60); Globulin 2.7 g/dL (1.3-3.2); Glucose 157 mg/dl (74-100); Hematocrit 36.1 % (37.0-47.0); Hemoglobin 11.5 g/dL (12.2-16.2); Lymphocytes # 0.8 K/mm3 (0.7-4.5); Lymphocytes % 4.1 % (10-50); Mean Corpuscular HGB Conc 31.9 g/dL (31.8-35.4); Mean Corpuscular Hemoglobin 24.3 pg (27.0-31.2); Mean Corpuscular Volume 76.3 fl (81-99); Mean Platelet Volume 10.6 fl (7.4-10.4); Monocytes % 5.1 % (1.7-9.3); Neutrophils # 17.9 K/mm3 (1.8-7.8); Neutrophils % 90.3 % (37.0-80.0); Platelet Count 233 K/mm3 (142-424); Potassium 3.9 mmoL/L (3.5-5.1); Red Blood Count 4.73 M/mm3 (4.20-5.40); Red Cell Distribution Width 18.6 % (11.5-17.5); Sodium 140 mmol/L (136-145); White Blood Count 19.8 K/mm3 (4.8-10.8)
--- NOTE | 2022-09-15 06:35 | PC.NURSE ---
notified MD Winkler of labs
--- NOTE | 2022-09-15 06:38 | PC.NURSE ---
Per Radha Palomo, RN: MD Winkler notified this RN that labs are likely due to hepatic congestion and to hold any beta blockers and entresto today, only give ASA and Brilinta today and give NS @ 150mL/hr for total of 500mL Initialized on 09/15/22 06:38 - END OF NOTE
[2022-09-15 06:47] LABS: Thyroid Stimulating Hormone 1.08 uIU/mL (0.465-4.68)
[2022-09-15 07:03] LABS: Lymphocytes % 7 % (10-50); Monocytes % 2 % (2-9); Neutrophils % 91 % (42-76); Total Cells Counted 100
[2022-09-15 07:04] LABS: Platelet Estimate Normal; RBC Morphology Normal
--- NOTE | 2022-09-15 08:07 | EXP.PN ---
Subjective *Date: 09/15/22 *Time: 08:07 Interval history: Patient had a rough day yesterday. She received 2 units of packed red blood cells and then became more short of breath with wheezing. Heart rate did increase to 130-1 40. She was started on Milrinone which did slow her heart rate but she ended up on an norepinephrine drip as well. She has also been started on Entresto which she did receive a dose of last night and is to start spironolactone this morning. Other meds were started as per cardiology please see med list. Magnesium was low and she was given 2 g IV yesterday. She ended up getting a total of 160 mg of Lasix IV. This a.m. she states she is feeling a lot better. She did sleep some during the night and feels somewhat rested. She denies having any chest pain. Her throat remains sore and she is coughing up some blood clots from the back of her throat. She has been able to eat and drink. She continues with a Burger catheter and has diuresed. Output is documented at 2600. Weight is 149 pounds. O2 sats are 100% on 3 L of oxygen per nasal cannula. Echocardiogram results are pending. Laboratory data this morning show white blood cell count of 19,800 with a hemoglobin of 11.5 and hematocrit of 36.1. Blood chemistries show BUN of 44 and creatinine of 1.3. Liver function studies are more elevated with an SGOT of 439 and SGPT of 335. TSH is normal at 1.08 Exam Data for Last 24 hours Vital signs and Labs for Last 24 Hours: Temp Pulse Resp BP Pulse Ox FiO2 97.7 F 94 H 12 91/46 L 100 28 09/15/22 07:58 09/15/22 06:00 09/15/22 06:00 09/15/22 06:00 09/15/22 06:00 09/13/22 20:31 Laboratory Results - last 24 hr 09/13/22 00:30: Blood Type B Positive, Antibody Screen Negative, Crossmatch ([facility]) See Detail 09/14/22 05:55: Triglycerides 154 H, Cholesterol 127 L, LDL Cholesterol Direct 43.02 L, VLDL Cholesterol 31, HDL Cholesterol 48, Cholesterol/HDL Ratio 2.6 09/14/22 15:51: Hgb 11.1 L D, Hct 33.5 L 09/15/22 05:37: TSH 1.08 09/15/22 05:37: WBC 19.8 H D, RBC 4.73 D, Hgb 11.5 L, Hct 36.1 L, MCV 76.3 L, MCH 24.3 L, MCHC 31.9, RDW 18.6 H, Plt Count 233, MPV 10.6 H, Neut % (Auto) 90.3 H, Lymph % (Auto) 4.1 L, [place] % (Auto) 5.1, Eos % (Auto) 0.3, Baso % (Auto) 0.2, Neut # (Auto) 17.9 H, Lymph # (Auto) 0.8, [place] # (Auto) 1.0, Eos # (Auto) 0.1, Baso # (Auto) 0.0, Total Counted 100, Neutrophils % (Manual) 91 H, Lymphocytes % (Manual) 7 L, Monocytes % (Manual) 2, Platelet Estimate Normal, RBC Morphology Normal 09/15/22 05:37: Sodium 140, Potassium 3.9 D, Chloride 107, Carbon Dioxide 24, Anion Gap 12.9, BUN 44 H D, Creatinine 1.30 H D, Estimated Creat Clear 38, Estimated GFR 40 L, Est GFR ( Amer) 48 L D, Glucose 157 H D, Calcium 8.5, Total Bilirubin 0.6, AST 439 H* D, ALT 335 H*, Alkaline Phosphatase 108, Total Protein 6.0 L, Albumin 3.3 L, Globulin 2.7, Albumin/Globulin Ratio 1.2 I & O for Last 24 hours: Intake & Output 09/12/22 09/13/22 09/14/22 09/15/22 11:59 11:59 11:59 11:59 Intake Total 411 / 411 1742.01 / 1742.01 585 / 585 Output Total 2640 / 2640 1450 / 1450 2450 / 2450 Balance -2229 / -2229 292.01 / 292.01 -1865 / -1865 Weight 140 lb 3 oz 142 lb 3.17 oz 149 lb 8.027 oz Microbiology Reports for the Last 24 Hours: Microbiology 09/12/22 22:50 Urine,Catheterized Urine Culture - Final NO GROWTH AFTER 48 HOURS Constitutional Constitutional: no acute distress Comments: Sitting up in the bed watching TV after completion of her breakfast. She appears quite comfortable. Respiratory effort is easy and unlabored. *Routine Respiratory Exam Respiratory: Present crackles (Fine bibasilar crackles.) *Routine Cardiovascular Exam Cardiovascular: Present RRR (Monitor shows sinus rhythm in the 90s. No ectopy.) *Routine Abdominal Exam Abdominal: Present soft and normoactive bowel sounds; Absent tenderness or distended *Routine Extremities Exam Extremities: Absent edema, calf tenderness
--- NOTE | 2022-09-15 08:52 | CA_ITS ---
FINAL REPORT TECHNIQUE: Graded compression, spectral analysis and ultrasound images of the venous system of the upper extremity were obtained. CLINICAL HISTORY: swelling redness in mid arm, multiple IV sticks, S/p CT, colon CA FINDINGS: The jugular vein, subclavian vein, axillary vein, brachial vein, and basilic venous system are fully compressible and demonstrate no evidence of thrombosis. There is noncompression of the left cephalic vein consistent with thrombosis. There is a 10 mm lymph node adjacent to the basilic vein that is nonspecific and may be reactive. IMPRESSION: Non-compression of the left cephalic vein consistent with thrombosis. Reviewed, Interpreted and Dictated by Trace Ferrer III, MD Transcribed by Gallo Mendez Authenticated and [facility]
--- NOTE | 2022-09-15 08:52 | XR_ITS ---
FINAL REPORT CLINICAL HISTORY: soa, decreased lung sounds, cough, elevated wbc COMPARISON: 09/13/2022 FINDINGS: A single portable view of the chest was obtained. The heart size and pulmonary vascularity are within normal limits. The mediastinum is within normal limits. There are bibasilar pulmonary opacities which is likely pneumonia. The bony thorax is intact. IMPRESSION: Bibasilar pulmonary opacities, likely pneumonia. Reviewed, Interpreted and Dictated by Trace Ferrer III, MD Transcribed by Courtney Sam Authenticated and [facility]
--- NOTE | 2022-09-15 09:17 | EXP.CARD.PN ---
Subjective Subjective Date: 09/15/22 Time: 09:18 Principal diagnosis: NSTEMI, chf Interval history: Yesterday patient developed soa and tachycardia s/p blood transfusion (received a total of 3). Dr. Winkler was notified and patient was started on milinone drip and was given 160mg of Lasix IV. Patients BP started to drop and milrinone was dc and patient was started on levo. She has had 2600mls of uop documented. This morning patient reports feeling better, soa has improved. She remains on Levo maxed out. Sats are 100 % on 3 Liters NC. Echo EF is 30-40%. Swelling and redness noted to left arm. Labs as follow: WBC up to 19.8 today Hgb up to 11.5 Potassium 3.9 Creatinine up 1.30 AST up 439 ALT up 335 Exam Data for Last 24 hours Vital signs and Labs for Last 24 Hours: Temp Pulse Resp BP Pulse Ox FiO2 97.7 F 90 16 97/49 L 99 28 09/15/22 07:58 09/15/22 08:30 09/15/22 08:30 09/15/22 08:30 09/15/22 08:30 09/13/22 20:31 Laboratory Results - last 24 hr 09/13/22 00:30: Blood Type B Positive, Antibody Screen Negative, Crossmatch ([facility]) See Detail 09/14/22 05:55: Triglycerides 154 H, Cholesterol 127 L, LDL Cholesterol Direct 43.02 L, VLDL Cholesterol 31, HDL Cholesterol 48, Cholesterol/HDL Ratio 2.6 09/14/22 15:51: Hgb 11.1 L D, Hct 33.5 L 09/15/22 05:37: TSH 1.08 09/15/22 05:37: WBC 19.8 H D, RBC 4.73 D, Hgb 11.5 L, Hct 36.1 L, MCV 76.3 L, MCH 24.3 L, MCHC 31.9, RDW 18.6 H, Plt Count 233, MPV 10.6 H, Neut % (Auto) 90.3 H, Lymph % (Auto) 4.1 L, [place] % (Auto) 5.1, Eos % (Auto) 0.3, Baso % (Auto) 0.2, Neut # (Auto) 17.9 H, Lymph # (Auto) 0.8, [place] # (Auto) 1.0, Eos # (Auto) 0.1, Baso # (Auto) 0.0, Total Counted 100, Neutrophils % (Manual) 91 H, Lymphocytes % (Manual) 7 L, Monocytes % (Manual) 2, Platelet Estimate Normal, RBC Morphology Normal 09/15/22 05:37: Sodium 140, Potassium 3.9 D, Chloride 107, Carbon Dioxide 24, Anion Gap 12.9, BUN 44 H D, Creatinine 1.30 H D, Estimated Creat Clear 38, Estimated GFR 40 L, Est GFR ( Amer) 48 L D, Glucose 157 H D, Calcium 8.5, Total Bilirubin 0.6, AST 439 H* D, ALT 335 H*, Alkaline Phosphatase 108, Total Protein 6.0 L, Albumin 3.3 L, Globulin 2.7, Albumin/Globulin Ratio 1.2 I & O for Last 24 hours: Intake & Output 09/12/22 09/13/22 09/14/22 09/15/22 23:59 23:59 23:59 23:59 Intake Total 1663.01 / 1783.01 655 / 655 420 / 420 Output Total 1450 / 1450 1340 / 1340 1999 / 1999 1750 / 1750 Balance -1450 / -1450 323.01 / 443.01 -1345 / -1345 -1330 / -1330 Weight 141 lb 11.2 oz 140 lb 3 oz 142 lb 3.17 oz 149 lb 8.027 oz Microbiology Reports for the Last 24 Hours: Microbiology 09/12/22 22:50 Urine,Catheterized Urine Culture - Final NO GROWTH AFTER 48 HOURS Constitutional Constitutional: no acute distress and thin *Routine Respiratory Exam Respiratory: Present crackles and diminished air movement *Routine Cardiovascular Exam Cardiovascular: Present Normal S1 and Normal S2 *Routine Abdominal Exam Abdominal: Present soft and normoactive bowel sounds; Absent tenderness *Routine Extremities Exam Comments: Lower extremities- no edema, pink and warm Left upper extremity- Redness and swelling present Progress Note: A&P Assessment and plan (1) Respiratory failure: Status: Acute (2) Non-ST elevation (NSTEMI) myocardial infarction: Status: Acute (3) LBBB (left bundle branch block): Status: Acute (4) Colon neoplasm: Status: Acute (5) Cardiogenic shock: Status: Acute (6) Ischemic cardiomyopathy: Status: Acute (7) HLD (hyperlipidemia): Status: Acute (8) HTN (hypertension): Status: Acute (9) Anemia: Status: Acute (10) Acute pharyngitis: Status: Acute (11) Hypokalemia: Status: Acute (12) Pulmonary interstitial fibrosis: Status: Suspected Assessment and Plan Assessment and Plan for All Diagnoses:: NSTEMI /CAD -[facility] on 09/12/2022-cardiogenic shock with successful perc
--- NOTE | 2022-09-15 10:19 | EXP.PULM.CON ---
History of Present Illness History of present illness: Ms. Dinh 77-year-old female no significant smoking with no prior respiratory complaints recently treated for pneumonia as an outpatient basis presented to the hospital with worsening respiratory distress found to be having significant coronary artery disease heart failure status post management by cardiology found to be having continued respiratory symptoms and pulmonary was called today for further evaluation [facility] Medical History (Updated 09/15/22 @ 12:26 by Malachi Chicas MD) Acquired hypothyroidism Blood loss anemia Breast cancer Bronchitis Colon cancer Emphysema lung Fever blister History of pneumonia Hospital-acquired pneumonia Hypertension Neoplasm of skin of upper arm Pulmonary interstitial fibrosis Surgical History History of colonoscopy History of mastectomy History of surgery Family History Other Cancer Coronary artery disease Hypertension Social History (Updated 09/13/22 @ 06:30 by Francisca Barcenas, EZ) Smoking Status: Never smoker alcohol intake: never substance use type: denies use current occupational status: retired Travel in the last 8 weeks: None household members: none and other details: Spouse is recently from cardiac disease. housing: house lives independently: Yes education level: high school caffeine: Yes special kristin needs: No agree to transfusion: No do you feel safe at home: Yes victim of physical abuse: No victim of emotional abuse: No victim of sexual abuse: No would you like helpful sources: No Review of Systems Constitutional Constitutional: Reports anorexia, Reports body ache(s), Reports fatigue, Reports poor appetite and Reports lethargy Eyes Eyes: Denies eye discharge, Denies dry eyes, Denies irritation and Denies itchy eyes ENT Ears, Nose, Mouth, and Throat: Denies epistaxis, Denies facial pain, Denies lip swelling and Denies throat swelling *Cardiovascular Cardiovascular: Reports dyspnea, Reports dyspnea on exertion and Reports orthopnea *Respiratory Respiratory: Reports chest congestion, Reports cough, Reports dyspnea, Reports dyspnea on exertion and Denies wheezing *Gastrointestinal Gastrointestinal: Denies abdominal pain, Denies belching and Denies cramping *Musculoskeletal Musculoskeletal: Reports back pain, Reports myalgias and Reports other (No small joint swelling or Pain) *Neurologic Neurologic: Reports system reviewed and no additional complaints, except as documented and Denies confusion Psychiatric Psychiatric: Denies confusion Endocrine Endocrine: Reports fatigue and Denies heat intolerance Hematologic/Lymphatic Hematologic/Lymphatic: Denies easy bleeding and Denies lymphadenopathy Allergic/Immunologic Allergic/Immunologic: Denies itchy eyes, Denies lip swelling, Denies throat swelling and Denies wheezing Pulmonology Exam Inpatient Vital signs and Labs for Last 24 Hours: Temp Pulse Resp BP Pulse Ox FiO2 97.7 F 82 18 73/36 L 99 28 09/15/22 07:58 09/15/22 09:30 09/15/22 09:30 09/15/22 09:30 09/15/22 09:30 09/13/22 20:31 Laboratory Results - last 24 hr 09/13/22 00:30: Blood Type B Positive, Antibody Screen Negative, Crossmatch (AHG) See Detail 09/14/22 05:55: Triglycerides 154 H, Cholesterol 127 L, LDL Cholesterol Direct 43.02 L, VLDL Cholesterol 31, HDL Cholesterol 48, Cholesterol/HDL Ratio 2.6 09/14/22 15:51: Hgb 11.1 L D, Hct 33.5 L 09/15/22 05:37: TSH 1.08 09/15/22 05:37: WBC 19.8 H D, RBC 4.73 D, Hgb 11.5 L, Hct 36.1 L, MCV 76.3 L, MCH 24.3 L, MCHC 31.9, RDW 18.6 H, Plt Count 233, MPV 10.6 H, Neut % (Auto) 90.3 H, Lymph % (Auto) 4.1 L, Isabella % (Auto) 5.1, Eos % (Auto) 0.3, Baso % (Auto) 0.2, Neut # (Auto) 17.9 H, Lymph # (Auto) 0.8, Isabella # (Auto) 1.0, Eos # (Auto) 0.1, Baso # (Auto) 0.0, Total Counted 100, Neutrophils % (Manual) 91
--- NOTE | 2022-09-15 12:52 | PC.NURSE ---
Notified Bárbara Mcmahon APRN of venous doppler results.
[2022-09-15 13:12] LABS: Iron 26 ug/dL (37-170)
[2022-09-15 13:21] LABS: Total Iron Binding Capacity 371 ug/dL (265-497)
--- NOTE | 2022-09-15 13:54 | PC.NURSE ---
Addendum entered by Magdalena Tipton RN 09/15/22 15:17: Sputum collected by respiratory Original Note: Pt unable to produce sputum at this time, specimen cup at bedside
--- NOTE | 2022-09-15 15:51 | PC.NURSE ---
Pt is alert and oriented x4. Lungs are diminished with some faint crackles. She's been weaned to RA. O2 saturations have been 95% or >. She's been NSR on telemetry. Levo drip has been weaned from 30 mcg/min to 6 mcg/min thus far. Will continue to wean as patient tolerates. Burger is to bedside draining clear, yellow urine. 800mls out. Swelling noted to left arm/elbow and brusing to left hand. Non-compression of the left cephalic vein consistent with thrombosis , per venous doppler report. Kpad placed on left arm per MD order, pt tolerating well. Dressing to right groin cath site is clean, dry and intact. Extensive bruising noted to RUE. Appetite has been fair. Pt has no other complaints at this time. Bed is locked and in the lowest position, call light is within reach. Family at bedside.
[2022-09-16] VITALS (23 sets, daily range): BP systolic 82–151; BP diastolic 35–60; PULSE 70–100; RESP 15–19; TEMP 36.4–36.6; O2SAT 91–100; BMI 23.4
--- NOTE | 2022-09-16 05:06 | PC.NURSE ---
Pt has remained on Levophed gtt this shift in order to maintain BP. Titrated per protocol. BP has improved this AM. Will continue to titrate down. Levophed is currently infusing @ 6 mcg/min. Has remained on RA. Lungs diminished t/o. Pt has not been able to sleep well tonight. Urine output 1025 ml for shift. No BM. Call light at bedside. Levophed titration 2207 - 4 mcg/min 2217 - 6 2300 - 8 2345 - 10 0100 - 14 0200 - 12 0300 - 10 0345 - 8 0500 - 6 mcg/min
--- NOTE | 2022-09-16 07:10 | PC.NURSE ---
Levophed titrated from 8 mcg/min to 6 @ 0500. 4 mcg/min @ 0600.
--- NOTE | 2022-09-16 08:20 | EXP.ACUTE.PN ---
Subjective *Date: 09/16/22 *Time: 08:20 Interval history: Patient states she feels about the same today. She states she is tired of sitting in the bed and wants to get up. She denies any pain this morning other than in her buttocks from sitting so long in the bed. Medical Exam Vital signs and Labs for Last 24 Hours: Vital Signs Temp Pulse Pulse Resp BP Pulse Ox 09/16/22 08:00 84 16 88/37 L 100 09/16/22 07:00 94 H 15 105/42 L 100 09/16/22 07:51 97.6 F 09/16/22 06:00 76 15 112/37 L 99 09/16/22 05:00 89 19 96/53 L 99 09/16/22 04:00 90 09/16/22 04:00 97.6 F 85 15 105/45 L 100 09/16/22 04:00 95 09/16/22 03:00 85 15 114/44 L 97 09/16/22 02:00 83 15 107/52 L 97 09/16/22 00:00 80 09/16/22 01:16 79 16 82/51 L 98 09/15/22 20:00 80 09/16/22 00:00 97.7 F 73 18 88/60 L 100 09/15/22 23:00 77 17 84/52 L 99 09/15/22 22:00 82 20 66/47 L 97 09/15/22 20:00 96 09/15/22 20:00 97.9 F 86 20 92/39 L 96 09/15/22 17:45 87 20 96/37 L 99 09/15/22 16:00 89 09/15/22 15:45 86 102/55 L 96 09/15/22 15:30 88 19 101/53 L 94 L 09/15/22 15:00 88 16 90/53 L 94 L 09/15/22 14:30 84 15 87/51 L 100 09/15/22 15:32 98.0 F 09/15/22 14:37 82 18 09/15/22 12:00 90 09/15/22 13:30 90 16 90/39 L 96 09/15/22 14:00 85 17 83/44 L 96 09/15/22 12:45 94 H 101/65 L 99 09/15/22 12:30 88 96/46 L 99 09/15/22 13:00 78 16 95/45 L 96 09/15/22 12:00 92 H 18 109/49 L 97 09/15/22 11:45 92 H 96/47 L 98 09/15/22 11:15 93 H 105/50 L 98 09/15/22 11:00 94 H 80/53 L 97 09/15/22 10:30 95 H 70/44 L 95 09/15/22 10:00 94 H 94/53 L 98 09/15/22 11:31 98.1 F 09/15/22 09:30 82 18 73/36 L 99 09/15/22 09:15 99 H 17 106/43 L 97 09/15/22 09:00 89 18 86/45 L 97 09/15/22 08:30 90 16 97/49 L 99 Intake and Output 09/15/22 09/16/22 09/16/22 19:59 03:59 11:59 Intake Total 1587.93 / 1849.93 36 / 1849.93 226 / 1849.93 Output Total 1550 / 2575 500 / 2575 525 / 2575 Balance 37.93 / -725.07 -464 / -725.07 -299 / -725.07 Intake: Intake, Oral Amount 420 / 540 120 / 540 Intake, Total IV Amount 1167.93 / 1309.93 36 / 1309.93 106 / 1309.93 Ceftriaxone Sodium 1 gm In 0.9 1146 / 1146 % Sodium Chloride 50 ml @ 100 mls/hr IV 0900 [facility] Rx#:[id number] Norepinephrine Bitartrate 8 mg 36 / 142 106 / 142 In Dextrose 5 % in Water 250 ml @ 2 MCG/MIN 3.87 mls/hr IV . Q24H [facility] Rx#:[id number] Output: Output, Urine Amount 800 / 800 0 / 800 Output, Urine Amount (Catheter) 750 / 1775 500 / 1775 525 / 1775 Burger 750 / 1775 500 / 1775 525 / 1775 Other: Number of Unmeasured Voids 0 0 0 Weight 149 lb 3.2 oz Patient Weight 09/16/22 11:59 Weight 149 lb 3.2 oz Laboratory Results - last 24 hr 09/13/22 00:30: Crossmatch (AHG) See Detail 09/15/22 12:25: Iron 26 L, TIBC 371, Iron Saturation 7.85571 L I & O for Labs for Last 24 Hours: Intake & Output 09/13/22 09/14/22 09/15/22 09/16/22 11:59 11:59 11:59 11:59 Intake Total 411 / 411 1742.01 / 1742.01 585 / 645 1849.93 / 1849.93 Output Total 2640 / 2640 1450 / 1450 2450 / 2450 2575 / 2575 Balance -2229 / -2229 292.01 / 292.01 -1865 / -1805 -725.07 / -725.07 Weight 140 lb 3 oz 142 lb 3.17 oz 149 lb 8.027 oz 149 lb 3.2 oz Microbiology Reports for the Last 24 Hours: Microbiology 09/15/22 14:35 Sputum - Expectorated Sputum Gram Stain - Final Constitutional: Present no acute distress Respiratory: Present decreased breath sounds and crackles Cardiac: Present Reg Rate and Rhythm GI: Present soft; Absent distention, tenderness or guarding Extremities: Absent edema Assessment and Plan *Assessment and plan (1) Respiratory failure: Status: Acute Category: Medical Code(s): J96.90 -
--- NOTE | 2022-09-16 08:48 | EXP.CARD.PN ---
Subjective Subjective Date: 09/16/22 Time: 08:00 Principal diagnosis: NSTEMI, chf Interval history: Patient reports feeling about the same today. Patient evaluated by pulmonology yesterday, antibiotics changed to Zosyn. Still requiring levo for blood pressure support. Blood pressure remains in the 80s. A.m. labs pending. Exam Data for Last 24 hours Vital signs and Labs for Last 24 Hours: Temp Pulse Resp BP Pulse Ox FiO2 97.6 F 84 16 88/37 L 100 28 09/16/22 07:51 09/16/22 08:00 09/16/22 08:00 09/16/22 08:00 09/16/22 08:00 09/13/22 20:31 Laboratory Results - last 24 hr 09/13/22 00:30: Crossmatch (AHG) See Detail 09/15/22 12:25: Iron 26 L, TIBC 371, Iron Saturation 7.16214 L I & O for Last 24 hours: Intake & Output 09/13/22 09/14/22 09/15/22 09/16/22 23:59 23:59 23:59 23:59 Intake Total 1663.01 / 1783.01 655 / 655 2006.93 / 2043.93 262 / 262 Output Total 1340 / 1340 1999 / 1999 3300 / 3800 1025 / 1025 Balance 323.01 / 443.01 -1345 / -1345 -1292.07 / -1756.07 -763 / -763 Weight 140 lb 3 oz 142 lb 3.17 oz 149 lb 8.027 oz 149 lb 3.2 oz Microbiology Reports for the Last 24 Hours: Microbiology 09/15/22 14:35 Sputum - Expectorated Sputum Gram Stain - Final Constitutional Constitutional: no acute distress and thin *Routine Respiratory Exam Respiratory: Present diminished air movement *Routine Cardiovascular Exam Cardiovascular: Present Normal S1 and Normal S2 *Routine Abdominal Exam Abdominal: Present soft and normoactive bowel sounds; Absent tenderness *Routine Extremities Exam Comments: Lower extremities- no edema, pink and warm Left upper extremity- Redness and swelling present Progress Note: A&P Assessment and plan (1) Respiratory failure: Status: Acute (2) Non-ST elevation (NSTEMI) myocardial infarction: Status: Acute (3) LBBB (left bundle branch block): Status: Acute (4) Colon neoplasm: Status: Acute (5) Cardiogenic shock: Status: Acute (6) Ischemic cardiomyopathy: Status: Acute (7) HLD (hyperlipidemia): Status: Acute (8) HTN (hypertension): Status: Acute (9) Anemia: Status: Acute (10) Acute pharyngitis: Status: Acute (11) Hypokalemia: Status: Acute (12) Pulmonary interstitial fibrosis: Status: Suspected (13) Hospital-acquired pneumonia: Status: Acute Assessment and Plan Assessment and Plan for All Diagnoses:: NSTEMI /CAD -[facility] on 09/12/2022-cardiogenic shock with successful percutaneous revascularization of the left main artery, LAD first diagonal artery and ostial mid and distal dominant right coronary. -Patient was placed on Integrilin drip-which is now DC'd -Continue Aspirin 81mg po QD, Brilinta 90 mg p.o. twice daily. Coreg 3.125mg p.o. twice daily, Entresto 24/26 p.o. twice daily remains on hold due to hypotension.? We will start rosuvastatin 80 mg p.o. daily when liver enzymes improve. Acute ischemic heart failure -Severe left ventricular dilation and severe global hypokinesis with an estimated ejection fraction of 15% noted on left heart cath. -Repeat echo s/p [facility] read from shows EF of 30 to 40%. Mild to moderate MR. -Previous echo from earlier this year showed normal EF -Entresto 24/26 mg p.o. twice daily, Coreg 3.125mg p.o. twice daily, Jardiance 10 mg p.o. daily, and Aldactone 25 mg p.o. daily- On hold due to hypotension -09/15/2022 update: patient developed soa and tachycardia after blood transfusion. Patient was started on milrinone drip and given lasix per dr. barrera.? Diuresed 2600mls of UOP. BP declined, milrinone dc. Now on levo.? Per Dr. Barrera orders please try to wean patient from levo.? BP-systolic acceptable in the 90s -09/16/2022-patient remains on levo, SBP in the 80. Dr. Barrera (cards) isconcerned for subclavian stenosis leading to poor blood pressure readings and arms, as patient has bounding femoral pulses. Bilateral upper extremity arterial doppler or
[2022-09-16 09:21] LABS: Basophils % 0.1 % (0.1-2.0); Eosinophils # 0.2 K/mm3 (0.0-0.4); Eosinophils % 1.2 % (0.1-12.0); Hematocrit 35.9 % (37.0-47.0); Hemoglobin 11.6 g/dL (12.2-16.2); Lymphocytes # 0.6 K/mm3 (0.7-4.5); Lymphocytes % 4.2 % (10-50); Mean Corpuscular HGB Conc 32.2 g/dL (31.8-35.4); Mean Corpuscular Hemoglobin 24.8 pg (27.0-31.2); Mean Corpuscular Volume 77.1 fl (81-99); Mean Platelet Volume 8.8 fl (7.4-10.4); Monocytes # 0.6 K/mm3 (0.1-1.0); Monocytes % 4.3 % (1.7-9.3); Neutrophils % 90.1 % (37.0-80.0); Platelet Count 241 K/mm3 (142-424); Red Blood Count 4.66 M/mm3 (4.20-5.40); Red Cell Distribution Width 18.8 % (11.5-17.5); White Blood Count 13.3 K/mm3 (4.8-10.8)
[2022-09-16 09:26] LABS: MANUAL DIFFERENTIAL MANUAL DIFFERENTIAL (MANUAL DIFF)
[2022-09-16 09:35] LABS: Alanine Aminotransferase 188 U/L (12-78); Albumin/Globulin Ratio 1.2 (1.1-1.8); Alkaline Phosphatase 102 U/L (38-126); Aspartate Amino Transferase 127 U/L (14-36); Bilirubin,Total 0.7 mg/dl (0.2-1.3); Blood Urea Nitrogen 27 mg/dl (7-17); Calcium 8.5 mg/dl (8.4-10.2); Carbon Dioxide 24 mmol/L (22.0-30.0); Chloride 102 mmol/L (98-107); Creatinine Clearance Estimated 49 mL/min (50-200); Estimated Glomerular Filt Rate 53 ml/min (>60); GFR (African American) 65 ML/MIN (>60); Globulin 2.5 g/dL (1.3-3.2); Glucose 111 mg/dl (74-100); Potassium 3.1 mmoL/L (3.5-5.1); Total Protein,Serum 5.5 g/dl (6.3-8.2)
--- NOTE | 2022-09-16 09:54 | EXP.PULM.PN ---
Subjective *Date: 09/16/22 *Time: 11:19 Interval history: No acute respiratory events overnight. Patient continues to remain on room air. Admits intermittent cough with very scant productive phlegm. Pulmonology Exam Inpatient Vital signs and Labs for Last 24 Hours: Temp Pulse Resp BP Pulse Ox FiO2 97.6 F 84 16 88/37 L 100 28 09/16/22 07:51 09/16/22 08:00 09/16/22 08:00 09/16/22 08:00 09/16/22 08:00 09/13/22 20:31 Laboratory Results - last 24 hr 09/13/22 00:30: Crossmatch (AHG) See Detail 09/15/22 12:25: Iron 26 L, TIBC 371, Iron Saturation 7.91423 L 09/16/22 09:10: WBC 13.3 H D, RBC 4.66, Hgb 11.6 L, Hct 35.9 L, MCV 77.1 L, MCH 24.8 L, MCHC 32.2, RDW 18.8 H, Plt Count 241, MPV 8.8, Neut % (Auto) 90.1 H, Lymph % (Auto) 4.2 L, Pike % (Auto) 4.3, Eos % (Auto) 1.2, Baso % (Auto) 0.1, Neut # (Auto) 12.0 H, Lymph # (Auto) 0.6 L, Pike # (Auto) 0.6, Eos # (Auto) 0.2, Baso # (Auto) 0.0 09/16/22 09:10: Sodium 128 L, Potassium 3.1 L D, Chloride 102, Carbon Dioxide 24, Anion Gap 5.1, BUN 27 H D, Creatinine 1.00 D, Estimated Creat Clear 49, Estimated GFR 53 L, Est GFR ( Amer) 65 D, Glucose 111 H, Calcium 8.5, Total Bilirubin 0.7, AST 127 H D, ALT 188 H D, Alkaline Phosphatase 102, Total Protein 5.5 L, Albumin 3.0 L, Globulin 2.5, Albumin/Globulin Ratio 1.2 I & O for Labs for Last 24 Hours: Intake & Output 09/13/22 09/14/22 09/15/22 09/16/22 23:59 23:59 23:59 23:59 Intake Total 1663.01 / 1783.01 655 / 655 2006.93 / 2042.93 262 / 262 Output Total 1340 / 1340 1999 / 1999 3300 / 3800 1025 / 1025 Balance 323.01 / 443.01 -1345 / -1345 -1292.07 / -1756.07 -763 / -763 Weight 140 lb 3 oz 142 lb 3.17 oz 149 lb 8.027 oz 149 lb 3.2 oz Microbiology Reports for the Last 24 Hours: Microbiology 09/15/22 14:35 Sputum - Expectorated Sputum Gram Stain - Final Constitutional: Present mild distress Head: Present normocephalic and atraumatic ENT: Present normal exam, normal oropharynx and mucous membranes moist Neck: Present normal inspection Respiratory: Present crackles and able to speak in complete sentences; Absent respiratory distress or wheezes Cardiac: Present S1/S2, Tachycardia and radial pulses present GI: Present soft and distention; Absent tenderness or guarding Rectal (female): Present deferred (female): Present deferred Skin: Present intact; Absent cyanosis or jaundice Neuro: Present alert, awake and oriented x 3 Extremities: Present normal inspection; Absent clubbing or cyanosis Psychiatric: Present normal affect and cooperative Assessment and Plan *Assessment and plan (1) Hospital-acquired pneumonia: Status: Acute Category: Medical Code(s): J18.9 - Pneumonia, unspecified organism; Y95 - Nosocomial condition Plan #Bilateral pleural effusions: #Hospital-acquired pneumonia: 77-year-old presented to the hospital on 09/12/2022 with problems of chest pain and shortness of breath. As presented patient and patient was found to be in left bundle branch block, progressively went into respiratory failure needing intubation and mechanical ventilatory support. LHC performed by cardiology, status post extensive coronary artery disease status post 9 stents placed. EF was 10% and an aortic balloon pump was placed,, was eventually removed with improving hemodynamics. Patient was extubated within 24 hours over the weekend. Patient respiratory status has been fluctuating throughout the hospital course. She also receiving transfusions for her anemia. CT on admission personally reviewed, patient had bilateral moderate-sized pleural effusions along with dense left lower lobe consolidation. Chest x-ray on this morning personally reviewed, continued to have bilateral lower lobe airspace disease and effusions, worsened from her admission chest x-ray. COVID-19 and flu PCR negative. Interval update: Continues to remain on room air. Pending blood cultures. Antibiotics were escalated to Zosyn yesterday. Stable respi
--- NOTE | 2022-09-16 10:35 | CA_ITS ---
FINAL REPORT CLINICAL HISTORY: possible subclavian stenosis FINDINGS: ARTERIAL DUPLEX DOPPLER BILATERAL UPPER PROXIMAL EXTREMITIES PROCEDURE: Spectral and color Doppler waveform evaluation of the proximal left and right upper extremity was performed. Spectral analysis was performed. Right vertebral artery is patent with antegrade flow. Peak velocity is 85 cm/sec. Right proximal subclavian artery peak velocity is 109 cm/sec. Left vertebral artery is patent with antegrade flow. Peak velocity is 44 cm/sec. Left proximal subclavian artery peak velocity is 291 cm/sec. IMPRESSION: No significant stenosis in the right subclavian artery. Significant left subclavian artery stenosis. Consider CT angiogram or catheter angiogram for further evaluation. Reviewed, Interpreted and Dictated by Trace Ferrer III, MD Transcribed by Shira Jacobo Authenticated and . [facility]
[2022-09-16 10:50] LABS: Sodium 135 mmol/L (136-145)
[2022-09-16 10:51] LABS: Anion Gap 12.1 mEq/L (5-15)
[2022-09-16 11:52] LABS: Hypochromasia 1+; Lymphocytes % 6 % (10-50); Microcytosis 1+; Monocytes % 2 % (2-9); Neutrophils % 92 % (42-76); Nucleated Red Blood Cells 1; Ovalocytes 1+; Platelet Estimate Normal; Total Cells Counted 100
--- NOTE | 2022-09-16 13:37 | DIET.NUTRFU ---
Patient has not been eating well, lack of appetite. Denies any GI distress. She is on regular diet, has not been filling out menu, encouraged her to fill out . RD suggested adding supplement in, she agreed to homemade milkshake with lunch and dinner to help meet caloric needs. Kitchen aware
--- NOTE | 2022-09-16 14:26 | US_ITS ---
FINAL REPORT CLINICAL HISTORY: left subclavian stenosis, STEMI, CAD FINDINGS: BILATERAL ANKLE BRACHIAL INDICES Pressure indices are as follows are: RIGHT LOWER EXTREMITY Ankle brachial pressure index: 1.8 Toe brachial pressure index: 0.9 COMMENTS: The right femoral LALO is not obtained due to recent angioplasty. The dorsalis pedis is noncompressible. The posterior tibial LALO is normal. LEFT LOWER EXTREMITY Ankle brachial pressure index: 1.1 Toe brachial pressure index: 0.8 COMMENTS: Normal IMPRESSION: Dorsalis pedis in the right lower extremity is noncompressible. Right posterior tibial LALO is normal. No evidence of significant obstructive peripheral vascular disease of the left lower extremity. Reviewed, Interpreted and Dictated by Trace Ferrer III, MD Transcribed by Shira Jacobo Authenticated and [facility]
--- NOTE | 2022-09-16 16:54 | PC.NURSE ---
Pt is alert and oriented x4. Lungs are clear and diminished. She remains on RA with O2 sats measuring > 93%. She has been up to the chair for a few hours today and tolerated well. One BM noted this shift. She's been NSR on telemetry. BP's measured using RLE due to inaccurate measurements from BUE's, per MD request. Redness and swelling to LUE. She is currently resting in bed watching tv. Bed is locked and in the lowest position, call light is within reach.
[2022-09-17] VITALS (18 sets, daily range): BP systolic 79–145; BP diastolic 38–63; PULSE 74–94; RESP 16–20; TEMP 36.3–36.7; O2SAT 90–95; BMI 23.3
--- NOTE | 2022-09-17 05:42 | PC.NURSE ---
pt has not rested well this shift, no complaints of chest pain or SOA, SBP 93-118, HR 78-95, remains on room air with O2 sats 91-93%, telemetry has shown SR, using BSC with a standby assist
--- NOTE | 2022-09-17 09:24 | EXP.ACUTE.PN ---
Subjective *Date: 09/17/22 *Time: 09:24 Interval history: Clinically she appears stable and improving. She is complaining less about her shortness of breath today. Her recent chest x-ray did show evidence of bibasilar pneumonia. Her white count remained elevated yesterday. Her potassium was low at 3.1 yesterday. Blood work is ordered this morning for recheck of those values. She is receiving p.o. potassium 20 mEq 3 times daily. The report of the left subclavian thrombosis is noted. Medical Exam Vital signs and Labs for Last 24 Hours: Vital Signs Temp Pulse Pulse Pulse Pulse Resp BP 09/17/22 08:00 97.5 F L 09/17/22 08:22 86 20 09/17/22 08:00 83 09/17/22 07:00 74 18 09/17/22 06:00 89 16 09/17/22 05:00 88 17 09/17/22 04:00 90 09/17/22 04:00 98.0 F 80 16 09/17/22 03:10 78 17 09/17/22 02:00 88 17 09/17/22 01:00 94 H 18 09/17/22 00:00 85 09/17/22 00:00 97.4 F L 82 18 09/16/22 23:00 95 H 17 09/16/22 20:00 90 09/16/22 22:00 88 18 09/16/22 21:00 85 18 09/16/22 20:00 97.9 F 81 18 09/16/22 15:42 100 H 09/16/22 18:00 94 H 16 09/16/22 15:35 97.5 F L 09/16/22 14:00 90 18 09/16/22 12:00 90 09/16/22 12:00 91 H 18 09/16/22 11:00 91 H 18 09/16/22 09:45 84 18 100/35 L 09/16/22 11:09 97.7 F BP Pulse Ox 09/17/22 08:00 09/17/22 08:22 97/51 L 95 09/17/22 08:00 94 L 09/17/22 07:00 122/48 L 94 L 09/17/22 06:00 125/49 L 93 L 09/17/22 05:00 99/56 L 92 L 09/17/22 04:00 09/17/22 04:00 110/48 L 92 L 09/17/22 03:10 102/48 L 92 L 09/17/22 02:00 103/63 L 91 L 09/17/22 01:00 145/48 H 92 L 09/17/22 00:00 09/17/22 00:00 118/45 L 93 L 09/16/22 23:00 102/48 L 91 L 09/16/22 20:00 09/16/22 22:00 102/47 L 91 L 09/16/22 21:00 108/53 L 91 L 09/16/22 20:00 93/55 L 92 L 09/16/22 15:42 09/16/22 18:00 88/56 L 93 L 09/16/22 15:35 09/16/22 14:00 151/54 H 100 09/16/22 12:00 09/16/22 12:00 99/52 L 09/16/22 11:00 116/43 L 100 09/16/22 09:45 100 09/16/22 11:09 Intake and Output 09/16/22 09/17/22 09/17/22 19:59 03:59 11:59 Intake Total 700 / 940 240 / 940 Output Total 0 / 0 0 / 0 0 / 0 Balance 700 / 940 0 / 940 240 / 940 Intake: Intake, Oral Amount 600 / 840 240 / 840 Intake, Total IV Amount 100 / 100 Piperacillin/Tazo 3.375 gm In 0 100 / 100 .9 % Sodium Chloride 50 ml @ 100 mls/hr IV Q6H [facility] Rx#: [id number] Output: Output, Urine Amount 0 / 0 0 / 0 0 / 0 Other: Number of Unmeasured Voids 1 1 1 Number of Bowel Movements 1 Weight 149 lb Patient Weight 09/17/22 11:59 Weight 149 lb Laboratory Results - last 24 hr 09/16/22 09:10: WBC 13.3 H D, RBC 4.66, Hgb 11.6 L, Hct 35.9 L, MCV 77.1 L, MCH 24.8 L, MCHC 32.2, RDW 18.8 H, Plt Count 241, MPV 8.8, Neut % (Auto) 90.1 H, Lymph % (Auto) 4.2 L, Saunders % (Auto) 4.3, Eos % (Auto) 1.2, Baso % (Auto) 0.1, Neut # (Auto) 12.0 H, Lymph # (Auto) 0.6 L, Saunders # (Auto) 0.6, Eos # (Auto) 0.2, Baso # (Auto) 0.0, Total Counted 100, Neutrophils % (Manual) 92 H, Lymphocytes % (Manual) 6 L, Monocytes % (Manual) 2, Nucleated RBCs 1, Platelet Estimate Normal, Hypochromasia 1+, Microcytosis 1+, Ovalocytes 1+ 09/16/22 09:10: Sodium 135 L, Potassium 3.1 L D, Chloride 102, Carbon Dioxide 24, Anion Gap 12.1, BUN 27 H D, Creatinine 1.00 D, Estimated Creat Clear 49, Estimated GFR 53 L, Est GFR ( Amer) 65 D, Glucose 111 H, Calcium 8.5, Total Bilirubin 0.7, AST 127 H D, ALT 188 H D, Alkaline Phosphatase 102, Total Protein 5.5 L, Albumin 3.0 L, Globulin 2.5, Albumin/Globulin Ratio 1.2 I & O for Labs for Last 24 Hours: Intake & Output 09/14/22 09/15/22 09/16/22 09/17/22 11:59 11:59 11:59 11:59 Intake Total 1742.01 / 1742.01 585 / 645 1849.93 / 1969.93 940 / 940 Output To
[2022-09-17 09:52] LABS: Basophils % 0.1 % (0.1-2.0); Eosinophils # 0.2 K/mm3 (0.0-0.4); Hemoglobin 10.9 g/dL (12.2-16.2); Lymphocytes # 0.5 K/mm3 (0.7-4.5); Mean Corpuscular HGB Conc 31.9 g/dL (31.8-35.4); Mean Corpuscular Hemoglobin 25.3 pg (27.0-31.2); Mean Corpuscular Volume 79.1 fl (81-99); Mean Platelet Volume 8.7 fl (7.4-10.4); Monocytes # 0.5 K/mm3 (0.1-1.0); Monocytes % 4.7 % (1.7-9.3); Neutrophils # 9.5 K/mm3 (1.8-7.8); Neutrophils % 88.2 % (37.0-80.0); Platelet Count 240 K/mm3 (142-424); Red Cell Distribution Width 19.2 % (11.5-17.5); White Blood Count 10.7 K/mm3 (4.8-10.8)
[2022-09-17 09:56] LABS: Chloride 110 mmol/L (98-107); MANUAL DIFFERENTIAL MANUAL DIFFERENTIAL (MANUAL DIFF); Potassium 3.7 mmoL/L (3.5-5.1); Sodium 139 mmol/L (136-145)
[2022-09-17 09:59] LABS: Anion Gap 7.7 mEq/L (5-15); Blood Urea Nitrogen 21 mg/dl (7-17); Carbon Dioxide 25 mmol/L (22.0-30.0); Creatinine Clearance Estimated 49 mL/min (50-200); Estimated Glomerular Filt Rate 81 ml/min (>60); GFR (African American) 98 ML/MIN (>60)
[2022-09-17 10:00] LABS: Calcium 8.4 mg/dl (8.4-10.2); Glucose 92 mg/dl (74-100)
[2022-09-17 10:14] LABS: Lymphocytes % 4 % (10-50); Monocytes % 5 % (2-9); Neutrophils % 91 % (42-76); Total Cells Counted 100
[2022-09-17 10:15] LABS: Anisocytosis 1+; Hypochromasia 1+; Ovalocytes 1+; Platelet Estimate Normal; Poikilocytosis 1+
--- NOTE | 2022-09-17 11:24 | PC.NURSE ---
Addendum entered by Pennie Ortega RN 09/17/22 11:25: 1035 Original Note: verbal order from Dr Mery Winkler: double entresto dose continue coreg stop amlodipine ok to use r arm for blood pressure
--- NOTE | 2022-09-17 11:36 | EXP.CARD.PN ---
Subjective Subjective Date: 09/17/22 Time: 08:00 Principal diagnosis: NSTEMI, chf Interval history: Stable. SOA continues to improve. Labs reviewed. Exam Data for Last 24 hours Vital signs and Labs for Last 24 Hours: Temp Pulse Resp BP Pulse Ox FiO2 97.5 F L 81 20 106/53 L 93 L 28 09/17/22 08:00 09/17/22 10:00 09/17/22 10:00 09/17/22 10:00 09/17/22 10:00 09/13/22 20:31 Laboratory Results - last 24 hr 09/16/22 09:10: Total Counted 100, Neutrophils % (Manual) 92 H, Lymphocytes % (Manual) 6 L, Monocytes % (Manual) 2, Nucleated RBCs 1, Platelet Estimate Normal, Hypochromasia 1+, Microcytosis 1+, Ovalocytes 1+ 09/17/22 09:45: WBC 10.7, RBC 4.30, Hgb 10.9 L, Hct 34.0 L, MCV 79.1 L, MCH 25.3 L, MCHC 31.9, RDW 19.2 H, Plt Count 240, MPV 8.7, Neut % (Auto) 88.2 H, Lymph % (Auto) 5.0 L, [place] % (Auto) 4.7, Eos % (Auto) 2.0, Baso % (Auto) 0.1, Neut # (Auto) 9.5 H, Lymph # (Auto) 0.5 L, [place] # (Auto) 0.5, Eos # (Auto) 0.2, Baso # (Auto) 0.0, Total Counted 100, Neutrophils % (Manual) 91 H, Lymphocytes % (Manual) 4 L, Monocytes % (Manual) 5, Platelet Estimate Normal, Hypochromasia 1+, Poikilocytosis 1+, Anisocytosis 1+, Ovalocytes 1+ 09/17/22 09:45: Sodium 139, Potassium 3.7, Chloride 110 H, Carbon Dioxide 25, Anion Gap 7.7, BUN 21 H, Creatinine 0.70 D, Estimated Creat Clear 49, Estimated GFR 81, Est GFR ( Amer) 98 D, Glucose 92, Calcium 8.4 I & O for Last 24 hours: Intake & Output 09/14/22 09/15/22 09/16/22 09/17/22 23:59 23:59 23:59 23:59 Intake Total 655 / 655 2006. / 2042. 962 / 962 240 / 240 Output Total 1999 3300 / 3800 1525 / 1525 0 / 0 Balance -1345 / -1345 -1292.07 / -1756.07 -563 / -563 240 / 240 Weight 142 lb 3.17 oz 149 lb 8.027 oz 149 lb 3.2 oz 149 lb Microbiology Reports for the Last 24 Hours: Microbiology 09/15/22 14:35 Sputum - Expectorated Sputum Gram Stain - Final 09/15/22 14:35 Sputum - Expectorated Sputum Sputum Culture - Preliminary Constitutional Constitutional: no acute distress and thin *Routine Respiratory Exam Respiratory: Present diminished air movement *Routine Cardiovascular Exam Cardiovascular: Present Normal S1 and Normal S2 *Routine Abdominal Exam Abdominal: Present soft and normoactive bowel sounds; Absent tenderness *Routine Extremities Exam Comments: Lower extremities- no edema, pink and warm Left upper extremity- Redness and swelling present Progress Note: A&P Assessment and plan (1) Ischemic cardiomyopathy: Status: Acute (2) Respiratory failure: Status: Acute (3) Cardiogenic shock: Status: Acute (4) Pneumonia: Status: Acute (5) Hypokalemia: Status: Acute (6) Blood loss anemia: Status: Acute (7) Colon cancer: Status: Acute (8) HTN (hypertension): Status: Acute Assessment and Plan Assessment and Plan for All Diagnoses:: NSTEMI /CAD -[facility] on 09/12/2022-cardiogenic shock with successful percutaneous revascularization of the left main artery, LAD first diagonal artery and ostial mid and distal dominant right coronary. -Patient was placed on Integrilin drip-which is now DC'd -Continue Aspirin 81mg po QD, Brilinta 90 mg p.o. twice daily. Coreg 3.125mg p.o. twice daily, Entresto 24/ p.o. twice daily remains on hold due to hypotension.? We will start rosuvastatin 80 mg p.o. daily when liver enzymes improve. Acute ischemic heart failure -Severe left ventricular dilation and severe global hypokinesis with an estimated ejection fraction of 15% noted on left heart cath. -Repeat echo s/p [facility] read from shows EF of 30 to 40%.? Mild to moderate MR. -Previous echo from earlier this year showed normal EF -Entresto 24/26 mg p.o. twice daily, Coreg 3.125mg p.o. twice daily, Jardiance 10 mg p.o. daily, and Aldactone 25 mg p.o. daily- On hold due to hypotension -09/15/2022 update: patient developed soa and tachycardia after blood transfusion. Patient was started on milrinone drip and given lasix per dr. bautista
--- NOTE | 2022-09-17 17:28 | PC.NURSE ---
pt has had several visitors this shift. she was up to the chair for 2 hrs, then went back to bed to rest. pt bp has remained low this shift. per dr Mery barrera pt is to receive coreg. amlodipine was dc, entresto dose was doubled. pt has tolerated meds well, other than bp being soft. nad noted. pt labs stable this shift.
--- NOTE | 2022-09-17 18:32 | PC.NURSE ---
pt had 3 unmeasured voids
[2022-09-18] VITALS: BP 98/34; PULSE 75; RESP 16; TEMP 36.6; O2SAT 92
[2022-09-18 02:00] VITALS: BP 114/47; PULSE 75; RESP 16; O2SAT 94
[2022-09-18 04:00] VITALS: BP 112/50; PULSE 74; PULSE 82; RESP 18; TEMP 36.4; O2SAT 94
[2022-09-18 05:00] VITALS: BMI 22.4
[2022-09-18 06:00] VITALS: BP 115/59; PULSE 78; RESP 22; O2SAT 96
--- NOTE | 2022-09-18 06:00 | XR_ITS ---
PROCEDURE INFORMATION: Exam: XR Chest Exam date and time: 09/18/2022 2:29 AM Age: 77 years old Clinical indication: Condition or disease; Lung condition and disease; Pneumonia; Prior surgery; Additional info: Pnm TECHNIQUE: Imaging protocol: Radiologic exam of the chest. Views: 1 view. COMPARISON: CR XR CHEST PORTABLE 09/15/2022 9:31 AM FINDINGS: Lungs: Focal consolidation in the right lower lobe with a nodular component. But overall improved aeration in the lung bases especially on the left. Pleural spaces: No pleural effusion. No pneumothorax. Heart/Mediastinum: No acute findings or cardiomegaly. Bones/joints: No acute findings. Soft tissues: Partially calcified bilateral breast implants. IMPRESSION: Persistent but improved bibasilar opacities likely related to pneumonia. Nodular component in the medial right lower lobe for which follow-up to resolution or CT monitoring is recommended.
[2022-09-18 08:00] VITALS: BP 104/54; PULSE 80; RESP 20; TEMP 36.3; O2SAT 93; O2SAT 94
--- NOTE | 2022-09-18 08:21 | EXP.ACUTE.PN ---
Subjective *Date: 09/18/22 *Time: 08:21 Interval history: Patient states she is not feeling well this am. She has been freezing and having chills but no fever. She has developed sinus congestion over the past few days and she is also having diarrhea. She denies any other pain. Medical Exam Vital signs and Labs for Last 24 Hours: Vital Signs Temp Pulse Pulse Resp BP Pulse Ox 09/18/22 06:00 78 22 115/59 L 96 09/18/22 04:00 74 09/18/22 04:00 97.6 F 09/18/22 04:00 82 18 112/50 L 94 L 09/17/22 20:00 93 L 09/18/22 02:00 75 16 114/47 L 94 L 09/18/22 00:00 75 16 98/34 L 92 L 09/18/22 00:00 97.8 F 09/18/22 00:00 75 09/17/22 12:00 80 09/17/22 22:00 77 18 88/47 L 90 L 09/17/22 20:00 79 09/17/22 20:00 97.5 F L 09/17/22 19:55 81 17 140/57 L 91 L 09/17/22 16:00 97.8 F 09/17/22 17:00 82 92 L 09/17/22 16:00 77 18 79/41 L 93 L 09/17/22 14:00 75 20 143/38 H 93 L 09/17/22 12:00 97.5 F L 09/17/22 12:00 85 20 98/51 L 90 L 09/17/22 10:00 81 20 106/53 L 93 L 09/17/22 08:22 86 20 97/51 L 95 Intake and Output 09/17/22 09/18/22 09/18/22 19:59 03:59 11:59 Intake Total 530 / 700 170 / 700 Output Total Balance 529 / 699 170 / 699 0 / 699 Intake: Intake, Oral Amount 480 / 600 120 / 600 Intake, Total IV Amount 50 / 100 50 / 100 Piperacillin/Tazo 3.375 gm In 0 50 / 100 50 / 100 .9 % Sodium Chloride 50 ml @ 100 mls/hr IV Q6H [facility] Rx#: [id number] Output: Output, Urine Amount 0 Other: Number of Unmeasured Voids 1 1 Weight 143 lb 3.008 oz Patient Weight 09/18/22 11:59 Weight 143 lb 3.008 oz Laboratory Results - last 24 hr 09/17/22 09:45: WBC 10.7, RBC 4.30, Hgb 10.9 L, Hct 34.0 L, MCV 79.1 L, MCH 25.3 L, MCHC 31.9, RDW 19.2 H, Plt Count 240, MPV 8.7, Neut % (Auto) 88.2 H, Lymph % (Auto) 5.0 L, [place] % (Auto) 4.7, Eos % (Auto) 2.0, Baso % (Auto) 0.1, Neut # (Auto) 9.5 H, Lymph # (Auto) 0.5 L, [place] # (Auto) 0.5, Eos # (Auto) 0.2, Baso # (Auto) 0.0, Total Counted 100, Neutrophils % (Manual) 91 H, Lymphocytes % (Manual) 4 L, Monocytes % (Manual) 5, Platelet Estimate Normal, Hypochromasia 1+, Poikilocytosis 1+, Anisocytosis 1+, Ovalocytes 1+ 09/17/22 09:45: Sodium 139, Potassium 3.7, Chloride 110 H, Carbon Dioxide 25, Anion Gap 7.7, BUN 21 H, Creatinine 0.70 D, Estimated Creat Clear 49, Estimated GFR 81, Est GFR ( Amer) 98 D, Glucose 92, Calcium 8.4 I & O for Labs for Last 24 Hours: Intake & Output 09/15/22 09/16/22 09/17/22 09/18/22 11:59 11:59 11:59 11:59 Intake Total 585 / 645 1849.93 / 1969.93 940 / 940 700 / 700 Output Total 2450 / 2450 3075 / 3075 0 / 0 Balance -1865 / -1805 -1225.07 / -1105.07 940 / 940 699 / 699 Weight 149 lb 8.027 oz 149 lb 3.2 oz 149 lb 143 lb 3.008 oz Microbiology Reports for the Last 24 Hours: Microbiology 09/15/22 14:35 Sputum - Expectorated Sputum Gram Stain - Final 09/15/22 14:35 Sputum - Expectorated Sputum Sputum Culture - Final Normal Respiratory Fern 09/15/22 12:50 Blood - Deep Blood Culture - Preliminary NO GROWTH AFTER 48 HOURS 09/15/22 12:50 Blood - Deep Blood Culture - Preliminary NO GROWTH AFTER 48 HOURS Constitutional: Present no acute distress ENT: Present other (Nose congested) Neck: Present normal inspection Respiratory: Present CTA bilaterally; Absent respiratory distress Cardiac: Present Reg Rate and Rhythm GI: Present soft; Absent tenderness Extremities: Present normal inspection Skin: Present intact Neuro: Present alert and oriented x 3 Assessment and Plan *Assessment and plan (1) Ischemic cardiomyopathy: Status: Acute Category: Medical Code(s): I25.5 - Ischemic cardiomyopathy (2) Respiratory failure: Status: Acute
[2022-09-18 09:11] LABS: Adenovirus,PCR Not Detected (NotDetected); Bordetella Pertussis Not Detected (NotDetected); Chlamydophila Pneumoniae, PCR Not Detected (NotDetected); Coronavirus 19, PCR Not Detected (NotDetected); Coronavirus 229E Not Detected (NotDetected); Coronavirus NL63 Not Detected (NotDetected); Coronavirus OC43 Not Detected (NotDetected); Coronovirus HKU1,PCR Not Detected (NotDetected); Human Metapneumovirus Not Detected (NotDetected); Influenza A, PCR Not Detected (NotDetected); Influenza AH1, 2009 Not Detected (NotDetected); Influenza AH1, PCR Not Detected (NotDetected); Influenza AH3,PCR Not Detected (NotDetected); Influenza B, PCR Not Detected (NotDetected); Mycoplasma Pneumoniae, PCR Not Detected (NotDetected); Parainfluenza 1, PCR Not Detected (NotDetected); Parainfluenza 2, PCR Not Detected (NotDetected); Parainfluenza 3, PCR Not Detected (NotDetected); Parainfluenza 4, PCR Not Detected (NotDetected); Respiratory Syncytial Virus Not Detected (NotDetected); Rhinovirus/Enterovirus Not Detected (NotDetected)
--- NOTE | 2022-09-18 09:59 | EXP.PULM.PN ---
Subjective *Date: 09/18/22 *Time: 14:07 Interval history: No acyte respiratory events overnight. denies nay new resp complaints. Pulmonology Exam Inpatient Vital signs and Labs for Last 24 Hours: Temp Pulse Resp BP Pulse Ox FiO2 97.4 F L 80 20 104/54 L 93 L 28 09/18/22 08:00 09/18/22 08:00 09/18/22 08:00 09/18/22 08:00 09/18/22 08:00 09/13/22 20:31 Laboratory Results - last 24 hr 09/17/22 09:45: Total Counted 100, Neutrophils % (Manual) 91 H, Lymphocytes % (Manual) 4 L, Monocytes % (Manual) 5, Platelet Estimate Normal, Hypochromasia 1+, Poikilocytosis 1+, Anisocytosis 1+, Ovalocytes 1+ 09/17/22 09:45: Sodium 139, Potassium 3.7, Chloride 110 H, Carbon Dioxide 25, Anion Gap 7.7, BUN 21 H, Creatinine 0.70 D, Estimated Creat Clear 49, Estimated GFR 81, Est GFR ( Amer) 98 D, Glucose 92, Calcium 8.4 I & O for Labs for Last 24 Hours: Intake & Output 09/15/22 09/16/22 09/17/22 09/18/22 23:59 23:59 23:59 23:59 Intake Total 2006.93 / 2042.93 962 / 962 770 / 890 290 / 290 Output Total 3300 / 3800 1525 / 1525 1 / 1 0 / 0 Balance -1292.07 / -1756.07 -563 / -563 769 / 889 290 / 290 Weight 149 lb 8.027 oz 149 lb 3.2 oz 149 lb 143 lb 3.008 oz Microbiology Reports for the Last 24 Hours: Microbiology 09/15/22 14:35 Sputum - Expectorated Sputum Gram Stain - Final 09/15/22 14:35 Sputum - Expectorated Sputum Sputum Culture - Final Normal Respiratory Shanice 09/15/22 12:50 Blood - Deep Blood Culture - Preliminary NO GROWTH AFTER 48 HOURS 09/15/22 12:50 Blood - Deep Blood Culture - Preliminary NO GROWTH AFTER 48 HOURS Constitutional: Present mild distress Head: Present normocephalic and atraumatic ENT: Present normal exam, normal oropharynx and mucous membranes moist Neck: Present normal inspection Respiratory: Present crackles and able to speak in complete sentences; Absent respiratory distress or wheezes Cardiac: Present S1/S2, Tachycardia and radial pulses present GI: Present soft and distention; Absent tenderness or guarding Rectal (female): Present deferred (female): Present deferred Skin: Present intact; Absent cyanosis or jaundice Neuro: Present alert, awake and oriented x 3 Extremities: Present normal inspection; Absent clubbing or cyanosis Psychiatric: Present normal affect and cooperative Assessment and Plan *Assessment and plan (1) Hospital-acquired pneumonia: Status: Acute Category: Medical Code(s): J18.9 - Pneumonia, unspecified organism; Y95 - Nosocomial condition Plan #Bilateral pleural effusions: #Hospital-acquired pneumonia: 77-year-old presented to the hospital on 09/12/2022 with problems of chest pain and shortness of breath. As presented patient and patient was found to be in left bundle branch block, progressively went into respiratory failure needing intubation and mechanical ventilatory support. LHC performed by cardiology, status post extensive coronary artery disease status post 9 stents placed. EF was 10% and an aortic balloon pump was placed,, was eventually removed with improving hemodynamics. Patient was extubated within 24 hours over the weekend. Patient respiratory status has been fluctuating throughout the hospital course. She also receiving transfusions for her anemia. CT on admission personally reviewed, patient had bilateral moderate-sized pleural effusions along with dense left lower lobe consolidation. Chest x-ray on this morning personally reviewed, continued to have bilateral lower lobe airspace disease and effusions, worsened from her admission chest x-ray. COVID-19 and flu PCR negative. Interval update: No acute respiratory vents overnight. Continue to remain on room air. Continue to receiving Zosyn. Chest x-ray on this morning improving bilateral infiltrates. Improving leukocytosis. Sputum normal respiratory shanice. Blood cultures negative. Nasal MRSA PCR pe
[2022-09-18 12:00] VITALS: BP 112/48; PULSE 77; RESP 22; TEMP 36.4; O2SAT 95
[2022-09-18 12:29] LABS: Adenovirus F 40/41, stool Not Detected (NotDetected); Astrovirus Not Detected (NotDetected); Campylobacter Not Detected (NotDetected); Clostridium Difficile A/B, PCR Not Detected (NotDetected); Cryptosporidium Not Detected (NotDetected); Cyclospora Cayetanesis Not Detected (NotDetected); Entamoeba histolytica Not Detected (NotDetected); Enteroaggregative E coli Not Detected (NotDetected); Enteropathogenic E coli Not Detected (NotDetected); Enterotoxigenic E coli Not Detected (NotDetected); Giardia lamblia Not Detected (NotDetected); Norovirus Not Detected (NotDetected); Plesimonas Shigalloides, PCR Not Detected (NotDetected); Rotavirus A Not Detected (NotDetected); Salmonella, PCR Not Detected (NotDetected); Sapovirus Not Detected (NotDetected); Shiga-like toxin E coli Not Detected (NotDetected); Shigella Enterovasive E coli Not Detected (NotDetected); Vibrio Cholerae Not Detected (NotDetected); Vibrio, PCR Not Detected (NotDetected); Yersinia Entercolitica, PCR Not Detected (NotDetected)
--- NOTE | 2022-09-18 13:35 | HMH.PHAINT1 ---
Pharmacy Intervention Comments: Discharge counseling completed at bedside with the patient. Went through each new medication and discussed indication and possible side effects/mitigation strategies for each. Also overviewed continued medications and any changes from admission medication regimen. Patient verbalized understanding and has no questions or concerns at this time.
--- NOTE | 2022-09-18 13:36 | P.CONPHA_ITS ---
Pharmacy Intervention Comments: [employer] hear[employer] medication discharge counseling completed at bedside with the patient. Discussed new medications including carvedilol, clopidogrel, and sacubatril- valsartan. A statin was held per cardiology due to transaminitis. Explained the indication, mechanism, and possible side effects with each medication. Patient verbalized understanding and has no questions or concerns at this time.
--- NOTE | 2022-09-18 15:18 | EXP.DC.SUM ---
General Admission date:: 09/12/22 Discharge date: 09/18/22 HPI HPI HPI: This 77-year-old white female presented to the emergency room at [facility] with complaints of chest pain and shortness of breath. I attempted to copy the ER narrative but the computer is not allowing me to do so. Initially in the emergency room the patient seemed to stabilize. She was found to have a new left bundle branch block. After she received some metoprolol she became tachycardic and seem to move into respiratory failure and increased shortness of breath. She became hypoxic. She was intubated. There was elevation of her troponin. The emergency room physician contacted cardiology. Arrangements were made for cardiac catheterization. The patient has had recent cardiac work-ups with an echo showing an ejection fraction of 55%. She has not shown evidence in the past of congestive heart failure. She is not a smoker. She recently lost her to heart disease. She has been undergoing evaluation for a neoplasm of the colon which appears to be colon cancer. She had endoscopy by Dr. Yuan. She is being seen by Dr. Fong. Cardiac catheterization was performed this evening by Dr. Mason Winkler. The patient had extensive coronary artery disease. She received 9 stents. Her ejection fraction appeared to be markedly reduced at 10%. She had very poor anterior wall function. An aortic balloon pump was also placed. At the time of this evaluation after the patient has been transferred to [facility]. She is on a ventilator. The aortic balloon pump is in place. She seems to be stabilizing rather rapidly. With the aortic balloon pump off her pressure is greater than 100/70. Dr. Winkler has decided to remove the balloon pump. She has diuresed over 2000 cc. Hospital Course Hospital Course Hospital Course: The patient's aortic balloon pump was discontinued and she remained on a ventilator sedated. A type and cross for 3 units was ordered. She was able to be extubated on 09/13/2022 and still required some Levophed. Dr. Harris did discuss with the patient and family the note that he had received from Dr. Yuan indicating that she had colon carcinoma. She denied any awareness of blood loss through the stool. She was transfused with 2 units of packed red blood cells and started on Rocephin 1 g daily. She did begin feeling better. Her leg edema improved and her lungs sounded much better. She was given the additional unit of blood. Her blood pressure stabilized off of the Levophed drip. Her potassium was low, therefore it was replaced. Cardiology followed her and started her on aspirin, Brilinta, Coreg, and Entresto. They wanted to start her on rosuvastatin when her liver enzymes improved. Her echo did show improvement in her EF from 15% to 35 to 40%. She did have shortness of breath and wheezing after receiving her packed red blood cell units. Her heart rate increased to 130/140 bpm. She was started on milrinone which slowed her heart, but ended up dropping her pressure and she had to be started on a norepinephrine drip as well. Her magnesium was low and she was given 2 g IV. She ended up getting a total of 160 mg of Lasix IV after her blood transfusions. Her LFTs remained elevated. She had a chest x-ray which showed bibasilar pulmonary opacities likely pneumonia. Pulmonology was consulted. He wanted her antibiotics changed to Zosyn and wanted to continue DuoNebs and incentive spirometry. By 09/16/2022 she had decreased bilateral brachial pulses noted in the upper extremities and bilateral bounding femoral pulses. Dr. Winkler was concerned about subclavian stenosis, which was possibly contributing to her low blood pressure readings. Bilateral upper extremity arterial Dopplers were ordered and showed significant left subclavian artery stenosis but no stenosis on the right. He wanted to treat this medically. Her Entresto was increased, C
--- NOTE | 2022-09-21 15:29 | CARE MANAGER ---
Contacted patient related to discharge from hospital. Reviewed medications with patient and she states she wsas able to obtain all of them from the pharmacy. Reviewed medication changes as well. Patient denies any questions or concerns. EZ Vallecillo
== END 2022-09-18 14:06 | disposition home or self-care (01) | DRG 270 ==
LOC: ER 17:41 → CATHLAB 20:14 → 2ND 20:19
PROVIDERS: Nurse Practitioner; Nurse Practitioner Family; Physician Assistant; Admitting Provider Family Medicine; Emergency Provider Emergency Medicine; PCP Family Medicine; Referring Provider Internal Medicine; Visit Provider Family Medicine
DX: I21.4 Non-ST elevation (NSTEMI) myocardial infarction (principal); J96.90 Respiratory failure, unspecified, unspecified whether with hypoxia or hypercapnia; R57.0 Cardiogenic shock; C18.9 Malignant neoplasm of colon, unspecified; D62 Acute posthemorrhagic anemia; I44.7 Left bundle-branch block, unspecified; J43.9 Emphysema, unspecified; I10 Essential (primary) hypertension; Z85.3 Personal history of malignant neoplasm of breast; I25.5 Ischemic cardiomyopathy
CPT/HCPCS: 31500; 94002; 33967; 36415; 71045; 71275; 80048; 80053; 80061; 81001; 82378; 82803; 83540; 83550; 83880; 84443; 84484; 85007; 85014; 85018; 85025; 85048; 85049; 85378; 85730; 86850; 87040; 87070; 87081; 87086; 87205; 87507; 87581; 87632; 87798; 92928; 92929; 92941; 92979; 93005; 93306; 93458; 93923; 93930; 93971; 94761; 99152; 99153; 99285; C1725; C1760; C1769; C1874; C1876; C1894; C9600; C9601; C9606; C9803; J0696; J1205; J1327; J1644; J1956; J2260; J2405; J2543; J2704; J3475; P9016; Q9967; U0003; U0005

== ENCOUNTER → 2022-09-22 16:49 | Outpatient (CLI) | payer MEDICARE, SELFPAY ==
[2022-09-22 21:01] LABS: Basophils # 0.1 K/mm3 (0-0.2); Basophils % 0.5 % (0.1-2.0); Eosinophils # 0.2 K/mm3 (0.0-0.4); Eosinophils % 1.3 % (0.1-12.0); Hematocrit 40.6 % (37.0-47.0); Hemoglobin 11.9 g/dL (12.2-16.2); Lymphocytes # 0.8 K/mm3 (0.7-4.5); Lymphocytes % 6.5 % (10-50); Mean Corpuscular HGB Conc 29.2 g/dL (31.8-35.4); Mean Corpuscular Hemoglobin 24.7 pg (27.0-31.2); Mean Corpuscular Volume 84.7 fl (81-99); Mean Platelet Volume 9.9 fl (7.4-10.4); Monocytes # 0.7 K/mm3 (0.1-1.0); Monocytes % 5.2 % (1.7-9.3); Neutrophils # 11.2 K/mm3 (1.8-7.8); Neutrophils % 86.6 % (37.0-80.0); Platelet Count 477 K/mm3 (142-424); Red Cell Distribution Width 21.4 % (11.5-17.5); White Blood Count 12.9 K/mm3 (4.8-10.8)
[2022-09-22 21:05] LABS: MANUAL DIFFERENTIAL MANUAL DIFFERENTIAL (MANUAL DIFF)
[2022-09-22 21:41] LABS: Lymphocytes % 11 % (10-50); Monocytes % 6 % (2-9); Neutrophils % 82 % (42-76); Total Cells Counted 100
[2022-09-22 21:42] LABS: Acanthocytes 1+; Ovalocytes 1+; Platelet Estimate Normal
== END ==
PROVIDERS: PCP Family Medicine; Visit Provider Family Medicine
DX: J84.10 Pulmonary fibrosis, unspecified
CPT/HCPCS: 85007; 85025

== ENCOUNTER → 2022-10-02 19:12 | Outpatient (CLI) | payer MEDICARE, SELFPAY ==
[2022-10-02 18:39] LABS: Alanine Aminotransferase 14 U/L (12-78); Albumin Level 3.5 g/dl (3.5-5.0); Albumin/Globulin Ratio 1.7 (1.1-1.8); Alkaline Phosphatase 121 U/L (38-126); Anion Gap 10.4 mEq/L (5-15); Aspartate Amino Transferase 32 U/L (14-36); Bilirubin,Total 0.5 mg/dl (0.2-1.3); Blood Urea Nitrogen 13 mg/dl (7-17); Calcium 9.1 mg/dl (8.4-10.2); Carbon Dioxide 25 mmol/L (22.0-30.0); Chloride 107 mmol/L (98-107); Estimated Glomerular Filt Rate 96 ml/min (>60); GFR (African American) 117 ML/MIN (>60); Globulin 2.1 g/dL (1.3-3.2); Glucose 100 mg/dl (74-100); Potassium 3.4 mmoL/L (3.5-5.1); Sodium 139 mmol/L (136-145); Total Protein,Serum 5.6 g/dl (6.3-8.2)
== END ==
PROVIDERS: PCP Family Medicine; Visit Provider Family Medicine
DX: E87.6 Hypokalemia (principal)
CPT/HCPCS: 80053

== ENCOUNTER → 2022-10-12 15:48 | Outpatient (CLI) | payer MEDICARE, SELFPAY ==
[2022-10-12 20:05] LABS: Basophils # 0.1 K/mm3 (0-0.2); Basophils % 1.2 % (0.1-2.0); Eosinophils # 0.6 K/mm3 (0.0-0.4); Eosinophils % 7.5 % (0.1-12.0); Hematocrit 37.2 % (37.0-47.0); Hemoglobin 11.9 g/dL (12.2-16.2); Lymphocytes % 12.5 % (10-50); Mean Corpuscular HGB Conc 32.1 g/dL (31.8-35.4); Mean Corpuscular Hemoglobin 27.9 pg (27.0-31.2); Mean Corpuscular Volume 86.7 fl (81-99); Mean Platelet Volume 9.3 fl (7.4-10.4); Monocytes # 0.4 K/mm3 (0.1-1.0); Monocytes % 4.6 % (1.7-9.3); Neutrophils # 5.7 K/mm3 (1.8-7.8); Neutrophils % 74.1 % (37.0-80.0); Platelet Count 295 K/mm3 (142-424); Red Blood Count 4.29 M/mm3 (4.20-5.40); Red Cell Distribution Width 23.6 % (11.5-17.5); White Blood Count 7.7 K/mm3 (4.8-10.8)
[2022-10-12 20:35] LABS: Alanine Aminotransferase 15 U/L (12-78); Albumin Level 4.2 g/dl (3.5-5.0); Albumin/Globulin Ratio 1.7 (1.1-1.8); Alkaline Phosphatase 125 U/L (38-126); Aspartate Amino Transferase 34 U/L (14-36); Bilirubin,Total 0.6 mg/dl (0.2-1.3); Blood Urea Nitrogen 13 mg/dl (7-17); Carbon Dioxide 26 mmol/L (22.0-30.0); Chloride 107 mmol/L (98-107); Estimated Glomerular Filt Rate 81 ml/min (>60); GFR (African American) 98 ML/MIN (>60); Globulin 2.5 g/dL (1.3-3.2); Glucose 93 mg/dl (74-100); Sodium 143 mmol/L (136-145); Total Protein,Serum 6.7 g/dl (6.3-8.2)
== END ==
PROVIDERS: PCP Nurse Practitioner; Visit Provider Nurse Practitioner
DX: E87.6 Hypokalemia (principal); J18.9 Pneumonia, unspecified organism; R05.9 Cough, unspecified
CPT/HCPCS: 80053; 85025

== ENCOUNTER → 2022-10-14 10:10 | Outpatient (CLI) | payer MEDICARE, SELFPAY ==
--- NOTE | 2022-10-14 10:14 | XR_ITS ---
FINAL REPORT CLINICAL HISTORY: cough, pneumonia COMPARISON: 09/18/2022 FINDINGS: Two views of the chest were obtained. The heart size and pulmonary vascularity are within normal limits. The mediastinum is normal. There is improved aeration in the lung bases. There are persistent small right and moderate left pleural effusions. There is no pneumothorax. The bony thorax is intact. IMPRESSION: Persistent small right and moderate left pleural effusions. Improved aeration in the lung bases. Reviewed, Interpreted and Dictated by Trace Ferrer III, MD Transcribed by Courtney Sam Authenticated and [facility]
== END ==
PROVIDERS: PCP Family Medicine; Visit Provider Nurse Practitioner
DX: J18.9 Pneumonia, unspecified organism (principal); R05.9 Cough, unspecified
CPT/HCPCS: 71046